=== PATIENT | female | born 1980 | race Caucasian/White ===

== ENCOUNTER 2017-04-20 10:48 | Inpatient (IN) | payer OTHER ==
[2017-04-20 11:40] VITALS: BMI 24.7
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
[2017-04-20] MEDS ORDERED: IBUPROFEN 400 MG TABLET (FP) PO PRN (12:47)
[2017-04-20] MEDS ORDERED: P-EPHED 60MG/TRIPROLIDI 2.5MG TABLET PO PRN (12:47)
[2017-04-20] MEDS ORDERED: MENTHOL/PHENOL 1 EACH UD MM PRN (12:47)
[2017-04-20] MEDS ORDERED: MAGNESIUM CITRATE 300 ML BOTTLE PO PRN (12:47)
[2017-04-20] MEDS ORDERED: MAGNESIUM HYDROX 2400MG/30ML ORAL SUSPENSION 30 ML CUP PO PRN (12:47)
[2017-04-20] MEDS ORDERED: ACETAMINOPHEN 325 MG TABLET (FP) PO PRN (12:47)
[2017-04-20] MEDS ORDERED: guaiFENesin/D-METHORPHAN HB 10 ML UNIT-DOSE CUPS PO PRN (12:47)
[2017-04-20] MEDS ORDERED: LOPERAMIDE HCL 2 MG CAPSULE PO PRN (12:47)
[2017-04-20] MEDS ORDERED: chlordiazePOXIDE HCL 25 MG CAPSULE PO ONE (13:55)
[2017-04-20] MEDS: TRIMETHOBENZAMIDE HCL 200MG/2ML INJ IM PRN ×2 (14:23→22:21)
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
[2017-04-20 16:52] LABS: URINE APPEARANCE CLEAR; URINE BILIRUBIN NEGATIVE (NEGATIVE); URINE BLOOD NEGATIVE (NEGATIVE); URINE COLOR YELLOW; URINE GLUCOSE (UA) NEGATIVE (NEGATIVE); URINE KETONE NEGATIVE (NEGATIVE); URINE LEUK ESTERASE NEGATIVE (NEGATIVE); URINE NITRITE NEGATIVE (NEGATIVE); URINE PROTEIN NEGATIVE (NEGATIVE)
[2017-04-20] MEDS: chlordiazePOXIDE HCL 25 MG CAPSULE PO SCH ×2 (17:34→22:27)
--- NOTE | 2017-04-20 18:52 | PN ---
[facility] Progress Note Note: Patient c/o of withdrawal symptoms: feeling anxious and nauseous Patient in no acute distress, AOx3, denies SOB, chest pain, dizziness, or dyspnea withdrawals symptoms repeat EKG Clonidine 0.1 mg Continue to monitor Continue detox
[2017-04-20] MEDS ORDERED: cloNIDine HCL 0.1 MG TABLET PO ONE ×2 (19:00→19:15)
[2017-04-20] MEDS: THIAMINE HCL 100 MG TABLET (FP) PO SCH (22:26)
[2017-04-20] MEDS: levETIRAcetam 250 MG TABLET (FP) PO SCH (22:26)
[2017-04-20] MEDS: ZOLPIDEM TARTRATE 10 MG TABLET (PARK CARE ONLY) PO PRN (22:27)
[2017-04-21] MEDS: chlordiazePOXIDE HCL 25 MG CAPSULE PO PRN ×2 (02:19→12:56)
[2017-04-21] MEDS: hydrOXYzine PAMOATE 50 MG CAPSULE (FP) PO PRN (02:19)
[2017-04-21] MEDS ORDERED: METHADONE HCL 40 MG DISPERSABLE TABLET ONE (04:32)
[2017-04-21] MEDS ORDERED: METHADONE HCL 10 MG TABLET ONE (04:33)
[2017-04-21] MEDS: chlordiazePOXIDE HCL 25 MG CAPSULE PO SCH ×4 (05:33→22:37)
[2017-04-21] MEDS: METHADONE 160 MG, METHADONE 30 MG PO SCH (05:33)
[2017-04-21] MEDS ORDERED: METHADONE HCL 10 MG TABLET PO SCH (06:00)
[2017-04-21] MEDS: LEVOTHYROXINE NA 25 MCG TABLET (FP) PO SCH (07:40)
[2017-04-21 10:05] LABS: CHLORIDE 101 mmol/L (98-107); POTASSIUM 4.1 mmol/L (3.5-5.1); SODIUM 138 mmol/L (136-145)
[2017-04-21 10:09] LABS: HEMATOCRIT 35.5 % (32.4-45.2); HEMOGLOBIN 11.7 GM/dL (10.7-15.3); MCH 31.4 pg (25.7-33.7); MCHC 32.8 g/dl (32.0-36.0); MEAN CELL VOLUME 95.6 fl (80-96); MEAN PLT VOLUME 8.1 fl (7.5-11.1); PLATELET COUNT 295 K/MM3 (134-434); RBC 3.71 M/mm3 (3.60-5.2); RDW 18.2 % (11.6-15.6); WHITE BLOOD COUNT 3.5 K/mm3 (4.0-10.0)
[2017-04-21 10:11] LABS: ALBUMIN 3.1 g/dl (3.4-5.0); ALK PHOS 160 U/L (45-117); ANION GAP 11 (8-16); BLOOD UREA NITROGEN 13 mg/dL (7-18); CALCIUM 7.7 mg/dL (8.5-10.1); CO2 26 mmol/L (21-32); CREATININE 0.8 mg/dL (0.55-1.02); GLUCOSE,RANDOM 81 mg/dL (74-106); SGOT/AST 67 U/L (15-37); SGPT/ALT 36 U/L (12-78); TOT PROT 6.5 g/dl (6.4-8.2)
[2017-04-21] MEDS: PRENATAL VITAMINS W/ FOLIC ACID TABLET (FP) PO SCH (10:49)
[2017-04-21] MEDS: levETIRAcetam 250 MG TABLET (FP) PO SCH ×2 (10:49→22:37)
--- NOTE | 2017-04-21 15:39 | PN ---
S CIWA - CIWA Score Nausea/Vomitin Muscle Tremors: 4-Moderate,w/Arms Extend Anxiety: 4-Mod. Anxious/Guarded Agitation: 4-Moderately Restless Paroxysmal Sweats: 3 Orientation: 0-Oriented Tacttile Disturbances: 0-None Auditory Disturbances: 0-None Visual Disturbances: 0-None Headache: 0-None Present CIWA-Ar Total Score: 18 BHS Progress Note (SOAP) Subjective: anxious tremulous sweats Objective: 04/21/17 15:37 A & ox 3 Anxious Vital Signs Temperature 97.9 F 04/21/17 14:56 Pulse Rate 83 04/21/17 14:56 Respiratory Rate 16 04/21/17 14:56 Blood Pressure 127/86 04/21/17 14:56 O2 Sat by Pulse Oximetry (%) Laboratory Last Values WBC 3.5 K/mm3 (4.0-10.0) L 04/21/17 06:20 RBC 3.71 M/mm3 (3.60-5.2) 04/21/17 06:20 Hgb 11.7 GM/dL (10.7-15.3) 04/21/17 06:20 Hct 35.5 % (32.4-45.2) 04/21/17 06:20 MCV 95.6 fl (80-96) 04/21/17 06:20 MCH 31.4 pg (25.7-33.7) 04/21/17 06:20 MCHC 32.8 g/dl (32.0-36.0) 04/21/17 06:20 RDW 18.2 % (11.6-15.6) H 04/21/17 06:20 Plt Count 295 K/MM3 (134-434) 04/21/17 06:20 MPV 8.1 fl (7.5-11.1) 04/21/17 06:20 Sodium 138 mmol/L (136-145) 04/21/17 06:20 Potassium 4.1 mmol/L (3.5-5.1) 04/21/17 06:20 Chloride 101 mmol/L (98-107) 04/21/17 06:20 Carbon Dioxide 26 mmol/L (21-32) 04/21/17 06:20 Anion Gap 11 (8-16) 04/21/17 06:20 BUN 13 mg/dL (7-18) 04/21/17 06:20 Creatinine 0.8 mg/dL (0.55-1.02) 04/21/17 06:20 Creat Clearance w eGFR > 60 (>60) 04/21/17 06:20 Random Glucose 81 mg/dL (74-106) 04/21/17 06:20 Calcium 7.7 mg/dL (8.5-10.1) L 04/21/17 06:20 Total Bilirubin 1.0 mg/dL (0.2-1.0) 04/21/17 06:20 AST 67 U/L (15-37) H 04/21/17 06:20 ALT 36 U/L (12-78) 04/21/17 06:20 Alkaline Phosphatase 160 U/L (45-117) H 04/21/17 06:20 Total Protein 6.5 g/dl (6.4-8.2) 04/21/17 06:20 Albumin 3.1 g/dl (3.4-5.0) L 04/21/17 06:20 Urine Color Yellow 04/20/17 14:45 Urine Appearance Clear 04/20/17 14:45 Urine pH 6.0 (5.0-8.0) 04/20/17 14:45 Ur Specific [place] 1.023 (1.001-1.035) 04/20/17 14:45 Urine Protein Negative (NEGATIVE) 04/20/17 14:45 Urine Glucose (UA) Negative (NEGATIVE) 04/20/17 14:45 Urine Ketones Negative (NEGATIVE) 04/20/17 14:45 Urine Blood Negative (NEGATIVE) 04/20/17 14:45 Urine Nitrite Negative (NEGATIVE) 04/20/17 14:45 Urine Bilirubin Negative (NEGATIVE) 04/20/17 14:45 Urine Urobilinogen 2.0 mg/dL (0.2-1.0) H 04/20/17 14:45 Ur Leukocyte Esterase Negative (NEGATIVE) 04/20/17 14:45 RPR Titer Nonreactive (NONREACTIVE) 04/21/17 06:20 labs noted Assessment: 04/21/17 15:38 withdrawal sx Plan: continue detox increase hydration
[2017-04-21] MEDS: GABAPENTIN 100 MG CAPSULE (FP) PO SCH ×2 (16:21→22:37)
[2017-04-21] MEDS: THIAMINE HCL 100 MG TABLET (FP) PO SCH (22:37)
[2017-04-21] MEDS: ZOLPIDEM TARTRATE 10 MG TABLET (PARK CARE ONLY) PO PRN (22:37)
--- NOTE | 2017-04-21 22:48 | EKG ---
Test Reason : Blood Pressure : / mmHG Vent. Rate : 067 BPM Atrial Rate : 067 BPM P-R Int : 186 ms QRS Dur : 086 ms QT Int : 472 ms P-R-T Axes : 029 027 025 degrees QTc Int : 498 ms NORMAL SINUS RHYTHM T WAVE ABNORMALITY, CONSIDER ANTERIOR ISCHEMIA PROLONGED QT ABNORMAL ECG WHEN COMPARED WITH ECG OF 20-APR-2017 13:51, NO SIGNIFICANT CHANGE WAS FOUND Confirmed by MD SHANTELL, REMEDIOS ([id number]) on 04/21/2017 10:47:56 PM Referred By: Confirmed By:REMEDIOS STINSON MD
[2017-04-22] MEDS: hydrOXYzine PAMOATE 50 MG CAPSULE (FP) PO PRN (00:47)
[2017-04-22] MEDS: chlordiazePOXIDE HCL 25 MG CAPSULE PO PRN ×3 (00:48→19:26)
[2017-04-22] MEDS ORDERED: METHADONE HCL 10 MG TABLET ONE (04:29)
[2017-04-22] MEDS ORDERED: METHADONE HCL 40 MG DISPERSABLE TABLET ONE (04:29)
[2017-04-22] MEDS: METHADONE 160 MG, METHADONE 30 MG PO SCH (05:41)
[2017-04-22] MEDS: GABAPENTIN 100 MG CAPSULE (FP) PO SCH ×3 (05:43→22:34)
[2017-04-22] MEDS: chlordiazePOXIDE HCL 25 MG CAPSULE PO SCH ×2 (05:44→10:44)
[2017-04-22] MEDS: MAG HYDROX/AL HYDROX/SIMETH 30 ML UNIT-DOSE CUP PO PRN ×3 (06:35→18:14)
[2017-04-22] MEDS: LEVOTHYROXINE NA 25 MCG TABLET (FP) PO SCH (07:52)
--- NOTE | 2017-04-22 09:43 | PN ---
[facility] CIWA - CIWA Score Nausea/Vomitin-No Nausea/No Vomiting Muscle Tremors: 4-Moderate,w/Arms Extend Anxiety: 4-Mod. Anxious/Guarded Agitation: 3 Paroxysmal Sweats: 1-Minimal Palms Moist Orientation: 0-Oriented Tacttile Disturbances: 1-Very Mild Itch/Numbness Auditory Disturbances: 0-None Visual Disturbances: 0-None Headache: 1-Very Mild CIWA-Ar Total Score: 14 BHS Progress Note (SOAP) Subjective: sweat tremor anxiety restlessness GI upset refuses synthroi patient wants to go to [facility] in patient rehab Objective: 04/22/17 09:42 Vital Signs Temperature 98.1 F 04/22/17 06:00 Pulse Rate 101 H 04/22/17 06:00 Respiratory Rate 18 04/22/17 06:00 Blood Pressure 149/74 04/22/17 06:00 O2 Sat by Pulse Oximetry (%) Laboratory Last Values WBC 3.5 K/mm3 (4.0-10.0) L 04/21/17 06:20 RBC 3.71 M/mm3 (3.60-5.2) 04/21/17 06:20 Hgb 11.7 GM/dL (10.7-15.3) 04/21/17 06:20 Hct 35.5 % (32.4-45.2) 04/21/17 06:20 MCV 95.6 fl (80-96) 04/21/17 06:20 MCH 31.4 pg (25.7-33.7) 04/21/17 06:20 MCHC 32.8 g/dl (32.0-36.0) 04/21/17 06:20 RDW 18.2 % (11.6-15.6) H 04/21/17 06:20 Plt Count 295 K/MM3 (134-434) 04/21/17 06:20 MPV 8.1 fl (7.5-11.1) 04/21/17 06:20 Sodium 138 mmol/L (136-145) 04/21/17 06:20 Potassium 4.1 mmol/L (3.5-5.1) 04/21/17 06:20 Chloride 101 mmol/L (98-107) 04/21/17 06:20 Carbon Dioxide 26 mmol/L (21-32) 04/21/17 06:20 Anion Gap 11 (8-16) 04/21/17 06:20 BUN 13 mg/dL (7-18) 04/21/17 06:20 Creatinine 0.8 mg/dL (0.55-1.02) 04/21/17 06:20 Creat Clearance w eGFR > 60 (>60) 04/21/17 06:20 Random Glucose 81 mg/dL (74-106) 04/21/17 06:20 Calcium 7.7 mg/dL (8.5-10.1) L 04/21/17 06:20 Total Bilirubin 1.0 mg/dL (0.2-1.0) 04/21/17 06:20 AST 67 U/L (15-37) H 04/21/17 06:20 ALT 36 U/L (12-78) 04/21/17 06:20 Alkaline Phosphatase 160 U/L (45-117) H 04/21/17 06:20 Total Protein 6.5 g/dl (6.4-8.2) 04/21/17 06:20 Albumin 3.1 g/dl (3.4-5.0) L 04/21/17 06:20 Urine Color Yellow 04/20/17 14:45 Urine Appearance Clear 04/20/17 14:45 Urine pH 6.0 (5.0-8.0) 04/20/17 14:45 Ur Specific [place] 1.023 (1.001-1.035) 04/20/17 14:45 Urine Protein Negative (NEGATIVE) 04/20/17 14:45 Urine Glucose (UA) Negative (NEGATIVE) 04/20/17 14:45 Urine Ketones Negative (NEGATIVE) 04/20/17 14:45 Urine Blood Negative (NEGATIVE) 04/20/17 14:45 Urine Nitrite Negative (NEGATIVE) 04/20/17 14:45 Urine Bilirubin Negative (NEGATIVE) 04/20/17 14:45 Urine Urobilinogen 2.0 mg/dL (0.2-1.0) H 04/20/17 14:45 Ur Leukocyte Esterase Negative (NEGATIVE) 04/20/17 14:45 RPR Titer Nonreactive (NONREACTIVE) 04/21/17 06:20 lab noted calcium supplement Assessment: 04/22/17 09:42 withdrawal sx low calcium serum anxiety with depression 04/22/17 09:44 hypothyroid Plan: continue detox zantac 150 mg bid robaxin 500 mg po qid psychiatrist referral tsh t3 and t4
[2017-04-22] MEDS: levETIRAcetam 250 MG TABLET (FP) PO SCH ×2 (10:44→22:34)
[2017-04-22] MEDS: PRENATAL VITAMINS W/ FOLIC ACID TABLET (FP) PO SCH (10:44)
[2017-04-22] MEDS: METHOCARBAMOL 500 MG TABLET PO SCH ×4 (10:46→22:34)
[2017-04-22] MEDS: RANITIDINE HCL 150 MG TABLET (FP) PO SCH ×2 (10:47→22:34)
[2017-04-22] MEDS: CALCIUM (OYSTER SHELL) 500 MG TABLET (FP) PO SCH ×2 (10:50→22:35)
[2017-04-22] MEDS: chlordiazePOXIDE 5 MG CAPSULE PO SCH ×2 (17:21→22:34)
[2017-04-22] MEDS: THIAMINE HCL 100 MG TABLET (FP) PO SCH (22:37)
[2017-04-22] MEDS: ZOLPIDEM TARTRATE 10 MG TABLET (PARK CARE ONLY) PO PRN (22:38)
[2017-04-23] MEDS ORDERED: METHADONE HCL 40 MG DISPERSABLE TABLET ONE (04:41)
[2017-04-23] MEDS ORDERED: METHADONE HCL 10 MG TABLET ONE (04:42)
[2017-04-23] MEDS: METHADONE 160 MG, METHADONE 30 MG PO SCH (06:20)
[2017-04-23] MEDS: GABAPENTIN 100 MG CAPSULE (FP) PO SCH ×3 (06:22→22:12)
[2017-04-23] MEDS: chlordiazePOXIDE 5 MG CAPSULE PO SCH ×2 (06:22→10:43)
[2017-04-23] MEDS: LEVOTHYROXINE NA 25 MCG TABLET (FP) PO SCH (06:23)
[2017-04-23] MEDS: MAG HYDROX/AL HYDROX/SIMETH 30 ML UNIT-DOSE CUP PO PRN (06:26)
--- NOTE | 2017-04-23 09:16 | PN ---
BHS Progress Note (SOAP) Subjective: alert oriented x3 anxious about availability in patient rehab patient determines to remain sober through recovery process Objective: 04/23/17 09:15 Vital Signs Temperature 97.8 F 04/23/17 06:23 Pulse Rate 71 04/23/17 06:23 Respiratory Rate 18 04/23/17 06:23 Blood Pressure 117/84 04/23/17 06:23 O2 Sat by Pulse Oximetry (%) Laboratory Last Values WBC 3.5 K/mm3 (4.0-10.0) L 04/21/17 06:20 RBC 3.71 M/mm3 (3.60-5.2) 04/21/17 06:20 Hgb 11.7 GM/dL (10.7-15.3) 04/21/17 06:20 Hct 35.5 % (32.4-45.2) 04/21/17 06:20 MCV 95.6 fl (80-96) 04/21/17 06:20 MCH 31.4 pg (25.7-33.7) 04/21/17 06:20 MCHC 32.8 g/dl (32.0-36.0) 04/21/17 06:20 RDW 18.2 % (11.6-15.6) H 04/21/17 06:20 Plt Count 295 K/MM3 (134-434) 04/21/17 06:20 MPV 8.1 fl (7.5-11.1) 04/21/17 06:20 Sodium 138 mmol/L (136-145) 04/21/17 06:20 Potassium 4.1 mmol/L (3.5-5.1) 04/21/17 06:20 Chloride 101 mmol/L (98-107) 04/21/17 06:20 Carbon Dioxide 26 mmol/L (21-32) 04/21/17 06:20 Anion Gap 11 (8-16) 04/21/17 06:20 BUN 13 mg/dL (7-18) 04/21/17 06:20 Creatinine 0.8 mg/dL (0.55-1.02) 04/21/17 06:20 Creat Clearance w eGFR > 60 (>60) 04/21/17 06:20 Random Glucose 81 mg/dL (74-106) 02/24/18 06:20 Calcium 7.7 mg/dL (8.5-10.1) L 04/21/17 06:20 Total Bilirubin 1.0 mg/dL (0.2-1.0) 04/21/17 06:20 AST 67 U/L (15-37) H 04/21/17 06:20 ALT 36 U/L (12-78) 04/21/17 06:20 Alkaline Phosphatase 160 U/L (45-117) H 04/21/17 06:20 Total Protein 6.5 g/dl (6.4-8.2) 04/21/17 06:20 Albumin 3.1 g/dl (3.4-5.0) L 04/21/17 06:20 Urine Color Yellow 04/20/17 14:45 Urine Appearance Clear 04/20/17 14:45 Urine pH 6.0 (5.0-8.0) 04/20/17 14:45 Ur Specific [place] 1.023 (1.001-1.035) 04/20/17 14:45 Urine Protein Negative (NEGATIVE) 04/20/17 14:45 Urine Glucose (UA) Negative (NEGATIVE) 04/20/17 14:45 Urine Ketones Negative (NEGATIVE) 04/20/17 14:45 Urine Blood Negative (NEGATIVE) 04/20/17 14:45 Urine Nitrite Negative (NEGATIVE) 04/20/17 14:45 Urine Bilirubin Negative (NEGATIVE) 04/20/17 14:45 Urine Urobilinogen 2.0 mg/dL (0.2-1.0) H 04/20/17 14:45 Ur Leukocyte Esterase Negative (NEGATIVE) 04/20/17 14:45 RPR Titer Nonreactive (NONREACTIVE) 04/21/17 06:20 lab noted Assessment: 04/23/17 09:15 mild withdrawal sx Plan: medically supervised detox lab reviewed and explained to the patient tsh t3 t4 pending patient verbalized understanding
--- NOTE | 2017-04-23 09:39 | PN ---
Psychiatric Progress Note Vital Signs: Vital Signs Period Temp Pulse Resp BP Sys/Modi Pulse Ox Last 24 Hr 97.8 F-98.6 F 71-87 17-20 103-117/64-84 Date of Session: 04/23/17 Chief Complaint:: " I have anxiety and i havent met my counselor." HPI: Pt. admitted to for benzodizepine dependence. ROS: Unremarkable Current Medications: Active Medications Generic Name Dose Route Start Last Admin Trade Name Freq PRN Reason Stop Dose Admin Acetaminophen 650 mg 04/20/17 12:47 Tylenol - PO Q4H PRN FEVER Al Hydroxide/Mg Hydroxide 30 ml 04/20/17 12:47 04/23/17 06:26 Mylanta Oral Suspension - PO 30 ml Q6H PRN Administration DYSPEPSIA Calcium Carbonate 500 mg 04/22/17 10:15 04/22/17 22:35 Os-Zaheer 500mg - PO 500 mg BID YOLANDE Administration Chlordiazepoxide HCl 15 mg 04/22/17 17:00 04/23/17 06:22 Librium - PO 04/23/17 11:01 15 mg [id number] YOLANDE Administration Chlordiazepoxide HCl 25 mg 04/20/17 12:47 04/22/17 19:26 Librium - PO 04/23/17 12:46 25 mg Q4H PRN Administration WITHDRAWAL(CONT SUBST) Chlordiazepoxide HCl 10 mg 04/23/17 17:00 Librium - PO 04/24/17 11:01 [id number] YOLANDE Eucalyptus/Menthol/Phenol/Sorbitol 1 each 04/20/17 12:47 Cepastat Lozenge - MM Q4H PRN SORE THROAT Gabapentin 100 mg 04/21/17 15:15 04/23/17 06:22 Neurontin - PO 100 mg TID YOLANDE Administration Guaifenesin 10 ml 04/20/17 12:47 Robitussin Dm - PO Q6H PRN COUGH Hydroxyzine Pamoate 50 mg 04/20/17 12:47 04/22/17 00:47 Vistaril - PO 50 mg Q4H PRN Administration AGITATION Levetiracetam 750 mg 04/20/17 22:00 04/22/17 22:34 Keppra - PO 750 mg BID YOLANDE Administration Levothyroxine Sodium 50 mcg 04/21/17 07:00 04/23/17 06:23 Synthroid - PO Not Given DAILY@0700 YOLANDE Loperamide HCl 4 mg 04/20/17 12:47 Imodium - PO Q6H PRN DIARRHEA Magnesium Citrate 300 ml 04/20/17 12:47 Citroma - PO Q48H PRN CONSTIPATION Magnesium Hydroxide 30 ml 04/20/17 12:47 Milk Of Magnesia - PO DAILY PRN CONSTIPATION Methadone HCl 160 mg/ 190 mg 04/21/17 06:00 04/23/17 06:20 Methadone HCl 30 mg PO 04/27/17 05:59 190 mg DAILY@0600 YOLANDE Administration Methocarbamol 500 mg 04/22/17 10:00 04/22/17 22:34 Robaxin - PO 04/24/17 09:59 500 mg QID YOLANDE Administration Multivit/Folic Acid/Iron 1 tab 04/21/17 10:00 04/22/17 10:44 Vitamins (Sjr) - PO 1 tab DAILY YOLANDE Administration Pseudoephedrine/Triprolidine 1 combo 04/20/17 12:47 Actifed - PO TID PRN NASAL CONGESTION Ranitidine HCl 150 mg 04/22/17 10:00 04/22/17 22:34 Zantac - PO 150 mg BID YOLANDE Administration Thiamine HCl 100 mg 04/20/17 22:00 04/22/17 22:37 Vitamin B1 - PO 100 mg HS YOLANDE Administration Trimethobenzamide HCl 200 mg 04/20/17 13:03 04/20/17 22:21 Tigan Injection - IM 200 mg Q8H PRN Administration NAUSEA Zolpidem Tartrate 10 mg 04/20/17 22:00 04/22/17 22:38 Ambien - PO 04/23/17 21:59 10 mg HS PRN Administration INSOMNIA Medication(s) Change(s): No. Current Side Effect: No Lab tests ordered: No Lab tests reviewed: Yes Provider note:: Ram Car Operator met with patient concerning psychiatric reconsulation. Pt. requesting information on her counselor and discharge planning. Pt. also requesting medications for anxiety. Pt. was seen by telegraphic typewriter mechanic two days ago and alternative medications for anxiety were discussed. Pt. continues to refuse alternative medication for anxiety due to its ineffectiveneess and is requesting benzopdiaxepines. Pt. made aware that benzodiazepines will not be ordered. Pt. made aware and educated on her current medication regime while in detox. Pt. receptive to feedback. Will continue to monitor. Total face to face time:: 25 Mental Status Exam - Mental Status Exam Alert and Oriented to: Time, Place, Person Cognitive Function: Good Patient Appearance: Well Groomed Mood: Anxious Affect: Mood Congruent Patient Behavior: Cooperative Speech Pattern: Appropriate Voice Loudness: Normal Thought Process: Goal Oriented Thought Disorder: Not Present Hallucinations: Denies Suicidal Ideation: Denies Homicidal Ideation: Denies Insight/Judgement: Poor Sleep: Fair Appetite: Fair Muscle strength/Tone: Normal Gait/Station: Normal Psychiatric Treatment Plan - Problem List (1) Substance-induced sleep disorder Current Visit: Yes (2) Alcohol dependence with uncomplicated withdrawal Current Visit: Yes (3) Nicotine dependence Current Visit: Yes (4) PTSD (post-traumatic stress disorder) Current Visit: No Comment: Self reports. (5) Uncomplicated sedative, hypnotic or anxiolytic withdrawal Current Visit: Yes (6) Anxiety disorder Current Visit: Yes Comment: Self reports.
[2017-04-23] MEDS: levETIRAcetam 250 MG TABLET (FP) PO SCH (10:43)
[2017-04-23] MEDS: METHOCARBAMOL 500 MG TABLET PO SCH ×4 (10:43→22:13)
[2017-04-23] MEDS: RANITIDINE HCL 150 MG TABLET (FP) PO SCH ×2 (10:44→22:13)
[2017-04-23] MEDS: PRENATAL VITAMINS W/ FOLIC ACID TABLET (FP) PO SCH (10:44)
[2017-04-23] MEDS: hydrOXYzine PAMOATE 50 MG CAPSULE (FP) PO PRN ×2 (10:46→17:19)
[2017-04-23] MEDS: CALCIUM (OYSTER SHELL) 500 MG TABLET (FP) PO SCH ×2 (11:19→22:13)
[2017-04-23] MEDS ORDERED: chlordiazePOXIDE HCL 25 MG CAPSULE PO ONE (13:04)
[2017-04-23] MEDS: chlordiazePOXIDE HCL 10 MG CAPSULE PO SCH ×2 (17:18→22:12)
[2017-04-23] MEDS: THIAMINE HCL 100 MG TABLET (FP) PO SCH (22:12)
[2017-04-23] MEDS: ZOLPIDEM TARTRATE 10 MG TABLET (PARK CARE ONLY) PO PRN (22:13)
[2017-04-24] MEDS ORDERED: METHADONE HCL 40 MG DISPERSABLE TABLET ONE (04:22)
[2017-04-24] MEDS ORDERED: METHADONE HCL 10 MG TABLET ONE (04:22)
[2017-04-24] MEDS: chlordiazePOXIDE HCL 10 MG CAPSULE PO SCH ×2 (05:48→10:35)
[2017-04-24] MEDS: METHADONE 160 MG, METHADONE 30 MG PO SCH (05:49)
[2017-04-24] MEDS: GABAPENTIN 100 MG CAPSULE (FP) PO SCH (05:49)
[2017-04-24] MEDS: MAG HYDROX/AL HYDROX/SIMETH 30 ML UNIT-DOSE CUP PO PRN (05:57)
[2017-04-24] MEDS: LEVOTHYROXINE NA 25 MCG TABLET (FP) PO SCH (07:20)
[2017-04-24] MEDS ORDERED: LEVOTHYROXINE NA 25 MCG TABLET (FP) PO SCH (09:53)
--- NOTE | 2017-04-24 10:01 | DS ---
[facility] Detox Discharge Summary Admission Date: 04/20/17 Discharge Date: 04/24/17 - History Present History: Alcohol Dependence - Physical Exam Results Vital Signs: Vital Signs Temperature 97.7 F 04/24/17 06:29 Pulse Rate 73 04/24/17 06:29 Respiratory Rate 18 04/24/17 06:29 Blood Pressure 122/78 04/24/17 06:29 O2 Sat by Pulse Oximetry (%) Pertinent Admission Physical Exam Findings: WITHDRAWAL SX Laboratory Last Values WBC 3.5 K/mm3 (4.0-10.0) L 04/21/17 06:20 RBC 3.71 M/mm3 (3.60-5.2) 04/21/17 06:20 Hgb 11.7 GM/dL (10.7-15.3) 04/21/17 06:20 Hct 35.5 % (32.4-45.2) 04/21/17 06:20 MCV 95.6 fl (80-96) 04/21/17 06:20 MCH 31.4 pg (25.7-33.7) 04/21/17 06:20 MCHC 32.8 g/dl (32.0-36.0) 04/21/17 06:20 RDW 18.2 % (11.6-15.6) H 04/21/17 06:20 Plt Count 295 K/MM3 (134-434) 04/21/17 06:20 MPV 8.1 fl (7.5-11.1) 04/21/17 06:20 Sodium 138 mmol/L (136-145) 04/21/17 06:20 Potassium 4.1 mmol/L (3.5-5.1) 04/21/17 06:20 Chloride 101 mmol/L (98-107) 04/21/17 06:20 Carbon Dioxide 26 mmol/L (21-32) 04/21/17 06:20 Anion Gap 11 (8-16) 04/21/17 06:20 BUN 13 mg/dL (7-18) 04/21/17 06:20 Creatinine 0.8 mg/dL (0.55-1.02) 04/21/17 06:20 Creat Clearance w eGFR > 60 (>60) 04/21/17 06:20 Random Glucose 81 mg/dL (74-106) 04/21/17 06:20 Calcium 7.7 mg/dL (8.5-10.1) L 04/21/17 06:20 Total Bilirubin 1.0 mg/dL (0.2-1.0) 04/21/17 06:20 AST 67 U/L (15-37) H 04/21/17 06:20 ALT 36 U/L (12-78) 04/21/17 06:20 Alkaline Phosphatase 160 U/L (45-117) H 04/21/17 06:20 Total Protein 6.5 g/dl (6.4-8.2) 04/21/17 06:20 Albumin 3.1 g/dl (3.4-5.0) L 04/21/17 06:20 TSH 4.67 uIU/ml (0.358-3.74) H 04/23/17 05:45 Free T3 1.6 pg/ml (2.0-4.4) L 04/23/17 05:45 Urine Color Yellow 04/20/17 14:45 Urine Appearance Clear 04/20/17 14:45 Urine pH 6.0 (5.0-8.0) 04/20/17 14:45 Ur Specific [place] 1.023 (1.001-1.035) 04/20/17 14:45 Urine Protein Negative (NEGATIVE) 04/20/17 14:45 Urine Glucose (UA) Negative (NEGATIVE) 04/20/17 14:45 Urine Ketones Negative (NEGATIVE) 04/20/17 14:45 Urine Blood Negative (NEGATIVE) 04/20/17 14:45 Urine Nitrite Negative (NEGATIVE) 04/20/17 14:45 Urine Bilirubin Negative (NEGATIVE) 04/20/17 14:45 Urine Urobilinogen 2.0 mg/dL (0.2-1.0) H 04/20/17 14:45 Ur Leukocyte Esterase Negative (NEGATIVE) 04/20/17 14:45 RPR Titer Nonreactive (NONREACTIVE) 04/21/17 06:20 LAB NOTED HEALTH TEACHING ON HYPOTHYROIDISM - Treatment Hospital Course: Detox Protocol Followed, Detoxed Safely, Responded well, Discharged Condition Good, Rehab Referral Accepted Patient has Accepted a Rehab Referral to: [facility] - Medication Discharge Medications: Ambulatory Orders Levothyroxine [Synthroid -] 50 mcg PO DAILY #30 tablet 04/23/17 levETIRAcetam [Keppra -] 750 mg PO BID #60 tablet 04/23/17 - Diagnosis (1) Hypothyroid Current Visit: Yes Status: Chronic Qualifiers: Hypothyroidism type: acquired Qualified Code(s): E03.9 - Hypothyroidism, unspecified (2) Alcohol dependence with uncomplicated withdrawal Current Visit: Yes Status: Acute (3) Methadone maintenance therapy patient Current Visit: Yes Status: Chronic (4) Seizure Current Visit: Yes Status: Chronic - AMA Did Patient Leave Against Medical Advice: No
[2017-04-24 10:06] VITALS: BP 108/76; PULSE 72; TEMP 97.3
[2017-04-24] MEDS: CALCIUM (OYSTER SHELL) 500 MG TABLET (FP) PO SCH (10:33)
[2017-04-24] MEDS: PRENATAL VITAMINS W/ FOLIC ACID TABLET (FP) PO SCH (10:33)
[2017-04-24] MEDS: RANITIDINE HCL 150 MG TABLET (FP) PO SCH (10:34)
--- NOTE | 2017-04-24 13:37 | EKG ---
Test Reason : Blood Pressure : / mmHG Vent. Rate : 075 BPM Atrial Rate : 075 BPM P-R Int : 166 ms QRS Dur : 078 ms QT Int : 428 ms P-R-T Axes : 043 017 034 degrees QTc Int : 477 ms NORMAL SINUS RHYTHM T WAVE ABNORMALITY, CONSIDER ANTERIOR ISCHEMIA PROLONGED QT ABNORMAL ECG NO PREVIOUS ECGS AVAILABLE Confirmed by MD Kareem, Shree ([id number]) on 04/24/2017 1:37:05 PM Referred By: Confirmed By:Shree Serna MD
[2017-04-25] MEDS ORDERED: LEVOTHYROXINE NA 25 MCG TABLET (FP) PO SCH (07:00)
== END 2017-04-24 11:10 | disposition other institution (70) | DRG 773 ==
LOC: YASAS 10:48 → Y6N 12:57
PROVIDERS: ADMIT Internal Medicine; ATTEND Internal Medicine
PROC: HZ2ZZZZ Detoxification Services for Substance Abuse Treatment (ICD-10-PCS; principal; 2017-04-20)
DX: F11.20 Opioid dependence, uncomplicated (principal); F13.230 Sedative, hypnotic or anxiolytic dependence with withdrawal, uncomplicated; F10.230 Alcohol dependence with withdrawal, uncomplicated; F43.10 Post-traumatic stress disorder, unspecified; F19.282 Other psychoactive substance dependence with psychoactive substance-induced sleep disorder; F41.9 Anxiety disorder, unspecified; G40.509 Epileptic seizures related to external causes, not intractable, without status epilepticus
CPT/HCPCS: 36415; 80053; 81003; 84436; 84443; 84481; 85027; 86593; 93005; 93010; J0735

== ENCOUNTER 2017-04-24 11:41 | Inpatient (IN) | payer OTHER ==
[2017-04-24] MEDS ORDERED: MAGNESIUM CITRATE 300 ML BOTTLE PO PRN (13:51)
[2017-04-24] MEDS ORDERED: ACETAMINOPHEN 325 MG TABLET (FP) PO PRN (13:51)
[2017-04-24] MEDS ORDERED: guaiFENesin/D-METHORPHAN HB 10 ML UNIT-DOSE CUPS PO PRN (13:51)
[2017-04-24] MEDS ORDERED: P-EPHED 60MG/TRIPROLIDI 2.5MG TABLET PO PRN (13:51)
[2017-04-24] MEDS ORDERED: MENTHOL/PHENOL 1 EACH UD MM PRN (13:51)
[2017-04-24] MEDS ORDERED: NICOTINE POLACRILEX 2 MG GUM BUC PRN (13:51)
[2017-04-24] MEDS ORDERED: LOPERAMIDE HCL 2 MG CAPSULE PO PRN (13:51)
--- NOTE | 2017-04-24 13:51 | HP ---
[facility] Rehab Assess/Revision - Admission History Admitted to Rehab from: [facility] Date of Admission to Rehab: 04/24/2017 - Vital signs Vital Signs: Vital Signs Period Temp Pulse Resp BP Sys/Modi Pulse Ox Last 24 Hr 97.8 F 80 18 113/79 - Findings Detox History & Physical reviewed: Yes Concur with findings: Yes Inpatient Rehab Admission - Initial Determination Are CD services needed?: Yes Free of communicable disease: Yes Not in need of hospitalization: Yes - Rehab Admission Criteria Comorbidities: Yes Patient is meeting Inpatient Rehab admission criteria:: Yes
[2017-04-24] MEDS: GABAPENTIN 100 MG CAPSULE (FP) PO SCH ×2 (15:01→21:23)
[2017-04-24] MEDS: hydrOXYzine PAMOATE 50 MG CAPSULE (FP) PO PRN (15:05)
[2017-04-24] MEDS ORDERED: levETIRAcetam 500 MG TABLET (FP) PO ONE (20:07)
[2017-04-24] MEDS ORDERED: levETIRAcetam 250 MG TABLET (FP) PO ONE (20:07)
[2017-04-24] MEDS: THIAMINE HCL 100 MG TABLET (FP) PO SCH (21:20)
[2017-04-24] MEDS: IBUPROFEN 400 MG TABLET (FP) PO PRN (21:25)
[2017-04-24] MEDS ORDERED: levETIRAcetam 250 MG TABLET (FP) PO SCH (22:00)
[2017-04-24] MEDS: SUVOREXANT 10 MG TABLET PO PRN (23:13)
[2017-04-24] MEDS ORDERED: CYCLOBENZAPRINE HCL 5 MG TABLET PO ONE (23:34)
[2017-04-25] MEDS ORDERED: METHADONE HCL 10 MG TABLET PO SCH (06:00)
[2017-04-25] MEDS ORDERED: METHADONE HCL 40 MG DISPERSABLE TABLET ONE (06:35)
[2017-04-25] MEDS ORDERED: METHADONE HCL 10 MG TABLET ONE (06:35)
[2017-04-25] MEDS: METHADONE 160 MG, METHADONE 30 MG PO SCH (06:42)
[2017-04-25] MEDS: GABAPENTIN 100 MG CAPSULE (FP) PO SCH (06:44)
[2017-04-25] MEDS ORDERED: LEVOTHYROXINE NA 50 MCG TABLET (FP) PO SCH (07:00)
[2017-04-25] MEDS: LEVOTHYROXINE NA 25 MCG TABLET (FP) PO SCH (07:07)
[2017-04-25] MEDS ORDERED: levETIRAcetam 500 MG TABLET (FP) PO ONE ×2 (08:57→19:38)
[2017-04-25] MEDS ORDERED: levETIRAcetam 250 MG TABLET (FP) PO ONE ×2 (08:58→19:38)
[2017-04-25] MEDS: PRENATAL VITAMINS W/ FOLIC ACID TABLET (FP) PO SCH (09:05)
[2017-04-25] MEDS: IBUPROFEN 400 MG TABLET (FP) PO PRN (09:06)
[2017-04-25] MEDS: hydrOXYzine PAMOATE 50 MG CAPSULE (FP) PO PRN ×3 (09:06→18:33)
[2017-04-25] MEDS: NICOTINE 14 MG/24 HOURS TOPICAL PATCH TD SCH (09:07)
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
[2017-04-25] MEDS: GABAPENTIN 300 MG CAPSULE (FP) PO SCH ×2 (13:11→21:31)
--- NOTE | 2017-04-25 13:15 | PN ---
S Progress Note (SOAP) Subjective: muscular pain on lower extremities, back and thigh Objective: 04/25/17 13:15 Last Vital Signs Temp Pulse Resp BP Pulse Ox 97.7 F 76 18 93/73 04/25/17 07:19 04/25/17 07:19 04/25/17 07:19 04/25/17 07:19 GENERAL APPEARANCE: Well developed, well nourished, alert and cooperative, and appears to be in no acute distress, anxious CARDIAC: Normal S1 and S2. No S3, S4 or murmurs. Rhythm is regular. There is no peripheral edema, cyanosis or pallor. Extremities are warm and well perfused. Capillary refill is less than 2 seconds. No carotid bruits. LUNGS: Clear to auscultation and percussion without rales, rhonchi, wheezing or diminished breath sounds. MUSKULOSKELETAL:ROM intact spine and extremities. No joint erythema or tenderness. Normal muscular development. Normal gait. BACK: normal gait and posture, no spinal deformity, symmetry of spinal muscles, decreased range of motion. + tenderness lower back EXTREMITIES: No significant deformity or joint abnormality. No edema. + pulses intact. No varicosities. NEUROLOGICAL: CN II-XII intact. Strength and sensation symmetric and intact throughout. Reflexes 2+ throughout. Cerebellar testing normal. SKIN: Skin normal color, texture and turgor with no lesions or eruptions. 04/25/17 13:18 Assessment: 04/25/17 13:17 Lumbago with b/t sciatica 04/25/17 13:18 Plan: Increase fluids Ambulate daily Flexeril 5 mg TID Continue to monitor
[2017-04-25] MEDS: MAG HYDROX/AL HYDROX/SIMETH 30 ML UNIT-DOSE CUP PO PRN (13:18)
[2017-04-25] MEDS: CYCLOBENZAPRINE HCL 5 MG TABLET PO SCH ×2 (15:07→21:31)
[2017-04-25] MEDS: THIAMINE HCL 100 MG TABLET (FP) PO SCH (21:31)
[2017-04-25] MEDS: SUVOREXANT 10 MG TABLET PO PRN (22:58)
[2017-04-26] MEDS ORDERED: METHADONE HCL 10 MG TABLET ONE (03:09)
[2017-04-26] MEDS ORDERED: METHADONE HCL 40 MG DISPERSABLE TABLET ONE (03:09)
[2017-04-26] MEDS: METHADONE 160 MG, METHADONE 30 MG PO SCH (06:15)
[2017-04-26] MEDS: LEVOTHYROXINE NA 25 MCG TABLET (FP) PO SCH (06:17)
[2017-04-26] MEDS: CYCLOBENZAPRINE HCL 5 MG TABLET PO SCH ×3 (06:17→21:41)
[2017-04-26] MEDS: GABAPENTIN 300 MG CAPSULE (FP) PO SCH ×3 (06:17→21:41)
[2017-04-26] MEDS ORDERED: levETIRAcetam 250 MG TABLET (FP) PO ONE ×2 (08:17→19:44)
[2017-04-26] MEDS ORDERED: levETIRAcetam 500 MG TABLET (FP) PO ONE ×2 (08:17→19:43)
[2017-04-26] MEDS: PRENATAL VITAMINS W/ FOLIC ACID TABLET (FP) PO SCH (10:28)
[2017-04-26] MEDS: NICOTINE 14 MG/24 HOURS TOPICAL PATCH TD SCH (10:28)
[2017-04-26] MEDS: hydrOXYzine PAMOATE 50 MG CAPSULE (FP) PO PRN ×3 (10:29→22:53)
[2017-04-26] MEDS: MAG HYDROX/AL HYDROX/SIMETH 30 ML UNIT-DOSE CUP PO PRN (18:26)
[2017-04-26] MEDS: THIAMINE HCL 100 MG TABLET (FP) PO SCH (21:41)
[2017-04-26] MEDS: SUVOREXANT 10 MG TABLET PO PRN (22:53)
[2017-04-27] MEDS ORDERED: METHADONE HCL 40 MG DISPERSABLE TABLET ONE (03:13)
[2017-04-27] MEDS ORDERED: METHADONE HCL 10 MG TABLET ONE (03:13)
[2017-04-27] MEDS: METHADONE 160 MG, METHADONE 30 MG PO SCH (06:22)
[2017-04-27] MEDS: LEVOTHYROXINE NA 25 MCG TABLET (FP) PO SCH (06:23)
[2017-04-27] MEDS: CYCLOBENZAPRINE HCL 5 MG TABLET PO SCH (06:23)
[2017-04-27] MEDS: GABAPENTIN 300 MG CAPSULE (FP) PO SCH (06:24)
[2017-04-27] MEDS ORDERED: levETIRAcetam 500 MG TABLET (FP) PO ONE ×2 (08:48→19:30)
[2017-04-27] MEDS ORDERED: levETIRAcetam 250 MG TABLET (FP) PO ONE ×2 (08:48→19:30)
[2017-04-27] MEDS: NICOTINE 14 MG/24 HOURS TOPICAL PATCH TD SCH (10:35)
[2017-04-27] MEDS: PRENATAL VITAMINS W/ FOLIC ACID TABLET (FP) PO SCH (10:35)
--- NOTE | 2017-04-27 11:28 | PN ---
S Progress Note (SOAP) Subjective: patient noted to have severe trembling since admission originally attributed to alcohol; and sedative withdrawal sx but patient has a h/o hypothyroidism and was not taking her nedication because it made her shaky. Medication restarted at a lower dose but trembling continues after detox most likely 2/2 to medication as per patient. Objective: 04/27/17 11:28 Vital Signs - 24 hr 04/26/17 04/27/17 04/27/17 21:47 03:30 07:04 Temperature 97.7 F 97.7 F Pulse Rate 76 79 Respiratory 18 16 18 Rate Blood Pressure 116/86 101/76 04/27/17 10:00 Temperature 96 F L Pulse Rate 98 H Respiratory 17 Rate Blood Pressure 102/58 labs reveiwed with patient Assessment: 04/27/17 11:34 hypothyroidism - tremors most likely from synthroid d/c medication, check blood work and tsh. ijeoma reviewed labwork and aware.
[2017-04-27] MEDS: hydrOXYzine PAMOATE 50 MG CAPSULE (FP) PO PRN ×2 (11:56→18:15)
[2017-04-27] MEDS: LIDOCAINE 5% TOPICAL PATCH TP SCH (13:00)
[2017-04-27] MEDS: GABAPENTIN 400 MG CAPSULE (FP) PO SCH ×2 (13:11→21:43)
[2017-04-27] MEDS: CYCLOBENZAPRINE HCL 10 MG TABLET (FP) PO SCH ×2 (13:11→21:43)
[2017-04-27] MEDS: THIAMINE HCL 100 MG TABLET (FP) PO SCH (21:43)
[2017-04-27] MEDS: AMITRIPTYLINE HCL 25 MG TABLET (FP) PO SCH (21:44)
[2017-04-27] MEDS: MAG HYDROX/AL HYDROX/SIMETH 30 ML UNIT-DOSE CUP PO PRN (21:45)
[2017-04-27] MEDS: LIDOCAINE PATCH REMOVAL MC SCH (22:24)
--- NOTE | 2017-04-27 22:26 | PN ---
S Progress Note Note: called by a nurse to r/n belsomra, according to medical record patient was on belsomra, will r/n.
[2017-04-27] MEDS: SUVOREXANT 10 MG TABLET PO SCH (22:42)
[2017-04-28] MEDS ORDERED: METHADONE HCL 10 MG TABLET ONE (05:54)
[2017-04-28] MEDS ORDERED: METHADONE HCL 40 MG DISPERSABLE TABLET ONE (05:55)
[2017-04-28] MEDS: GABAPENTIN 400 MG CAPSULE (FP) PO SCH ×3 (06:26→21:31)
[2017-04-28] MEDS: METHADONE 160 MG, METHADONE 30 MG PO SCH (06:26)
[2017-04-28] MEDS: CYCLOBENZAPRINE HCL 10 MG TABLET (FP) PO SCH ×3 (06:26→21:31)
[2017-04-28] MEDS ORDERED: levETIRAcetam 500 MG TABLET (FP) PO ONE ×2 (08:46→19:57)
[2017-04-28] MEDS ORDERED: levETIRAcetam 250 MG TABLET (FP) PO ONE ×2 (08:46→19:57)
[2017-04-28] MEDS: hydrOXYzine PAMOATE 50 MG CAPSULE (FP) PO PRN ×2 (09:21→13:19)
[2017-04-28] MEDS: LIDOCAINE 5% TOPICAL PATCH TP SCH (10:15)
[2017-04-28] MEDS: NICOTINE 14 MG/24 HOURS TOPICAL PATCH TD SCH (10:15)
[2017-04-28] MEDS: PRENATAL VITAMINS W/ FOLIC ACID TABLET (FP) PO SCH (10:15)
[2017-04-28 11:20] LABS: ANION GAP 9 (8-16); BILIRUBIN,TOTAL 0.4 mg/dL (0.2-1.0); BLOOD UREA NITROGEN 11 mg/dL (7-18); CALCIUM 8.2 mg/dL (8.5-10.1); CHLORIDE 103 mmol/L (98-107); CO2 26 mmol/L (21-32); GLUCOSE,RANDOM 124 mg/dL (74-106); SGPT/ALT 16 U/L (12-78); SODIUM 138 mmol/L (136-145); TOT PROT 6.3 g/dl (6.4-8.2)
[2017-04-28 11:30] LABS: ALK PHOS 93 U/L (45-117)
[2017-04-28 12:02] LABS: POTASSIUM 5.1 mmol/L (3.5-5.1); SGOT/AST 25 U/L (15-37)
--- NOTE | 2017-04-28 12:32 | PN ---
[facility] Progress Note Note: TSH IS 9.70,,SYNTHROID 50 MCG PO DAILY RESUME
[2017-04-28] MEDS ORDERED: LEVOTHYROXINE NA 25 MCG TABLET (FP) PO ONE (13:30)
[2017-04-28] MEDS: AMITRIPTYLINE HCL 25 MG TABLET (FP) PO SCH (21:31)
[2017-04-28] MEDS: SUVOREXANT 10 MG TABLET PO SCH (21:31)
[2017-04-28] MEDS: IBUPROFEN 400 MG TABLET (FP) PO PRN (21:32)
[2017-04-28] MEDS: MAGNESIUM HYDROX 2400MG/30ML ORAL SUSPENSION 30 ML CUP PO PRN (21:33)
[2017-04-28] MEDS: LIDOCAINE PATCH REMOVAL MC SCH (21:34)
[2017-04-28] MEDS: THIAMINE HCL 100 MG TABLET (FP) PO SCH (21:34)
[2017-04-28] MEDS ORDERED: SUVOREXANT 10 MG TABLET PO SCH (22:00)
[2017-04-29] MEDS: hydrOXYzine PAMOATE 50 MG CAPSULE (FP) PO PRN ×4 (04:09→21:27)
[2017-04-29] MEDS ORDERED: METHADONE HCL 10 MG TABLET ONE (05:42)
[2017-04-29] MEDS ORDERED: METHADONE HCL 40 MG DISPERSABLE TABLET ONE (05:42)
[2017-04-29] MEDS: LEVOTHYROXINE NA 25 MCG TABLET (FP) PO SCH (06:42)
[2017-04-29] MEDS: GABAPENTIN 400 MG CAPSULE (FP) PO SCH ×3 (06:43→21:25)
[2017-04-29] MEDS: METHADONE 160 MG, METHADONE 30 MG PO SCH (06:43)
[2017-04-29] MEDS: CYCLOBENZAPRINE HCL 10 MG TABLET (FP) PO SCH ×3 (06:43→21:25)
[2017-04-29] MEDS ORDERED: levETIRAcetam 250 MG TABLET (FP) PO ONE ×2 (08:53→19:47)
[2017-04-29] MEDS ORDERED: levETIRAcetam 500 MG TABLET (FP) PO ONE ×2 (08:53→19:47)
[2017-04-29] MEDS: NICOTINE 14 MG/24 HOURS TOPICAL PATCH TD SCH (10:08)
[2017-04-29] MEDS: PRENATAL VITAMINS W/ FOLIC ACID TABLET (FP) PO SCH (10:08)
[2017-04-29] MEDS: LIDOCAINE 5% TOPICAL PATCH TP SCH (10:09)
[2017-04-29 10:35] LABS: HEMATOCRIT 31.4 % (32.4-45.2); HEMOGLOBIN 10.6 GM/dL (10.7-15.3); MCH 32.6 pg (25.7-33.7); MCHC 33.7 g/dl (32.0-36.0); MEAN CELL VOLUME 96.8 fl (80-96); MEAN PLT VOLUME 8.1 fl (7.5-11.1); PLATELET COUNT 217 K/MM3 (134-434); RBC 3.24 M/mm3 (3.60-5.2); RDW 17.1 % (11.6-15.6); WHITE BLOOD COUNT 3.9 K/mm3 (4.0-10.0)
[2017-04-29] MEDS: THIAMINE HCL 100 MG TABLET (FP) PO SCH (21:25)
[2017-04-29] MEDS: AMITRIPTYLINE HCL 25 MG TABLET (FP) PO SCH (21:25)
[2017-04-29] MEDS: SUVOREXANT 10 MG TABLET PO SCH (21:27)
[2017-04-29] MEDS: LIDOCAINE PATCH REMOVAL MC SCH (21:27)
[2017-04-30] MEDS ORDERED: METHADONE HCL 40 MG DISPERSABLE TABLET ONE (03:32)
[2017-04-30] MEDS ORDERED: METHADONE HCL 10 MG TABLET ONE (03:32)
[2017-04-30] MEDS: METHADONE 160 MG, METHADONE 30 MG PO SCH (06:30)
[2017-04-30] MEDS: CYCLOBENZAPRINE HCL 10 MG TABLET (FP) PO SCH ×3 (06:31→21:31)
[2017-04-30] MEDS: GABAPENTIN 400 MG CAPSULE (FP) PO SCH ×4 (06:31→21:31)
[2017-04-30] MEDS: LEVOTHYROXINE NA 25 MCG TABLET (FP) PO SCH (06:33)
[2017-04-30] MEDS: IBUPROFEN 400 MG TABLET (FP) PO PRN (06:35)
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
[2017-04-30] MEDS ORDERED: levETIRAcetam 250 MG TABLET (FP) PO ONE ×2 (08:49→19:54)
[2017-04-30] MEDS ORDERED: levETIRAcetam 500 MG TABLET (FP) PO ONE ×2 (08:49→19:54)
[2017-04-30] MEDS: PRENATAL VITAMINS W/ FOLIC ACID TABLET (FP) PO SCH (10:12)
[2017-04-30] MEDS: LIDOCAINE 5% TOPICAL PATCH TP SCH (10:13)
[2017-04-30] MEDS: hydrOXYzine PAMOATE 50 MG CAPSULE (FP) PO PRN ×3 (10:13→21:31)
[2017-04-30] MEDS: NICOTINE 14 MG/24 HOURS TOPICAL PATCH TD SCH (10:19)
[2017-04-30] MEDS: AMITRIPTYLINE HCL 25 MG TABLET (FP) PO SCH (21:31)
[2017-04-30] MEDS: SUVOREXANT 10 MG TABLET PO SCH (21:32)
[2017-04-30] MEDS: LIDOCAINE PATCH REMOVAL MC SCH (21:33)
[2017-04-30] MEDS: THIAMINE HCL 100 MG TABLET (FP) PO SCH (21:33)
--- NOTE | 2017-04-30 23:25 | PN ---
[facility] Progress Note Note: Patient c/o feeling tumorous since discontinuing her synthroid. Current TSH 9.7. Patient was evaluated by the bedside. Patient AOx3, in no apparent distress ambulating in the unit. Patient moderate tremors on the upper extremities. Patient denies pain or parethesia. Discussed with Dr. Bergman who will evaluated patient tomorrow. Continue synthroid 50 mcg Continue to monitor
[2017-05-01] MEDS ORDERED: METHADONE HCL 10 MG TABLET PO SCH (06:30)
[2017-05-01] MEDS ORDERED: METHADONE HCL 10 MG TABLET ONE (06:51)
[2017-05-01] MEDS ORDERED: METHADONE HCL 40 MG DISPERSABLE TABLET ONE (06:52)
[2017-05-01] MEDS: METHADONE 160 MG, METHADONE 30 MG PO SCH (06:52)
[2017-05-01] MEDS: LEVOTHYROXINE NA 25 MCG TABLET (FP) PO SCH (06:53)
[2017-05-01] MEDS: CYCLOBENZAPRINE HCL 10 MG TABLET (FP) PO SCH ×3 (06:53→22:39)
[2017-05-01] MEDS: GABAPENTIN 400 MG CAPSULE (FP) PO SCH ×3 (06:53→22:40)
[2017-05-01] MEDS ORDERED: levETIRAcetam 500 MG TABLET (FP) PO ONE ×2 (08:54→22:34)
[2017-05-01] MEDS ORDERED: levETIRAcetam 250 MG TABLET (FP) PO ONE ×2 (08:55→22:34)
--- NOTE | 2017-05-01 10:25 | PN ---
S Progress Note (SOAP) Subjective: respond to code Objective: 05/01/17 10:20 observed patient unresponsive sitting on bedside, urinary incontinence noted ambulance called information provided to ER Assessment: 05/01/17 10:23 seizure Plan: assist patient lying on bed, 02 3L 145/73, 51, 97.8, bgm 151 patient regain consciousness, respond to verbal command, slurred at early cleared later
[2017-05-01] MEDS: PRENATAL VITAMINS W/ FOLIC ACID TABLET (FP) PO SCH (11:00)
[2017-05-01] MEDS: LIDOCAINE 5% TOPICAL PATCH TP SCH (11:00)
[2017-05-01] MEDS: NICOTINE 14 MG/24 HOURS TOPICAL PATCH TD SCH (11:00)
[2017-05-01] MEDS: AMITRIPTYLINE HCL 25 MG TABLET (FP) PO SCH (22:39)
[2017-05-01] MEDS: LIDOCAINE PATCH REMOVAL MC SCH (22:39)
[2017-05-01] MEDS: THIAMINE HCL 100 MG TABLET (FP) PO SCH (22:39)
[2017-05-01] MEDS: hydrOXYzine PAMOATE 50 MG CAPSULE (FP) PO PRN (22:40)
[2017-05-01] MEDS: SUVOREXANT 10 MG TABLET PO SCH (22:40)
[2017-05-02] MEDS ORDERED: METHADONE HCL 10 MG TABLET ONE (04:03)
[2017-05-02] MEDS ORDERED: METHADONE HCL 40 MG DISPERSABLE TABLET ONE (04:04)
[2017-05-02] MEDS: METHADONE 160 MG, METHADONE 30 MG PO SCH (06:53)
[2017-05-02] MEDS: LEVOTHYROXINE NA 25 MCG TABLET (FP) PO SCH (06:54)
[2017-05-02] MEDS: CYCLOBENZAPRINE HCL 10 MG TABLET (FP) PO SCH ×3 (06:54→21:43)
[2017-05-02] MEDS: GABAPENTIN 400 MG CAPSULE (FP) PO SCH ×3 (06:54→21:43)
[2017-05-02] MEDS ORDERED: levETIRAcetam 500 MG TABLET (FP) PO ONE ×2 (09:02→19:39)
[2017-05-02] MEDS ORDERED: levETIRAcetam 250 MG TABLET (FP) PO ONE ×2 (09:02→19:39)
[2017-05-02] MEDS: hydrOXYzine PAMOATE 50 MG CAPSULE (FP) PO PRN ×2 (10:09→18:19)
[2017-05-02] MEDS: LIDOCAINE 5% TOPICAL PATCH TP SCH (10:09)
[2017-05-02] MEDS: PRENATAL VITAMINS W/ FOLIC ACID TABLET (FP) PO SCH (10:09)
[2017-05-02] MEDS: NICOTINE 14 MG/24 HOURS TOPICAL PATCH TD SCH (10:10)
[2017-05-02] MEDS: MAG HYDROX/AL HYDROX/SIMETH 30 ML UNIT-DOSE CUP PO PRN (10:11)
[2017-05-02] MEDS ORDERED: COLLOIDAL OATMEAL 1 BAR EACH TP PRN (12:45)
[2017-05-02] MEDS: SUVOREXANT 10 MG TABLET PO SCH (21:43)
[2017-05-02] MEDS: AMITRIPTYLINE HCL 25 MG TABLET (FP) PO SCH (21:43)
[2017-05-02] MEDS: LIDOCAINE PATCH REMOVAL MC SCH (21:44)
[2017-05-02] MEDS: THIAMINE HCL 100 MG TABLET (FP) PO SCH (21:44)
[2017-05-02] MEDS: IBUPROFEN 400 MG TABLET (FP) PO PRN (21:46)
[2017-05-03] MEDS ORDERED: METHADONE HCL 10 MG TABLET ONE (03:21)
[2017-05-03] MEDS ORDERED: METHADONE HCL 40 MG DISPERSABLE TABLET ONE (03:22)
[2017-05-03] MEDS: METHADONE 160 MG, METHADONE 30 MG PO SCH (06:36)
[2017-05-03] MEDS: LEVOTHYROXINE NA 25 MCG TABLET (FP) PO SCH (06:38)
[2017-05-03] MEDS: GABAPENTIN 400 MG CAPSULE (FP) PO SCH (06:38)
[2017-05-03] MEDS: CYCLOBENZAPRINE HCL 10 MG TABLET (FP) PO SCH ×3 (06:38→21:24)
[2017-05-03] MEDS ORDERED: levETIRAcetam 500 MG TABLET (FP) PO ONE ×2 (08:46→19:34)
[2017-05-03] MEDS ORDERED: levETIRAcetam 250 MG TABLET (FP) PO ONE ×2 (08:46→19:34)
[2017-05-03] MEDS: NICOTINE 14 MG/24 HOURS TOPICAL PATCH TD SCH (10:18)
[2017-05-03] MEDS: PRENATAL VITAMINS W/ FOLIC ACID TABLET (FP) PO SCH (10:22)
[2017-05-03] MEDS: LIDOCAINE 5% TOPICAL PATCH TP SCH (10:23)
[2017-05-03] MEDS: hydrOXYzine PAMOATE 50 MG CAPSULE (FP) PO PRN (11:01)
[2017-05-03] MEDS: GABAPENTIN 300 MG CAPSULE (FP) PO SCH ×2 (13:47→21:24)
[2017-05-03] MEDS ORDERED: PT OWN MED DRAWER 7, Y5N ONE (19:36)
[2017-05-03] MEDS: THIAMINE HCL 100 MG TABLET (FP) PO SCH (21:24)
[2017-05-03] MEDS: AMITRIPTYLINE HCL 25 MG TABLET (FP) PO SCH (21:24)
[2017-05-03] MEDS: SUVOREXANT 10 MG TABLET PO SCH (22:26)
[2017-05-03] MEDS: LIDOCAINE PATCH REMOVAL MC SCH (22:27)
[2017-05-04] MEDS ORDERED: METHADONE HCL 5 MG TABLET ONE ×2 (05:55→17:18)
[2017-05-04] MEDS ORDERED: METHADONE HCL 40 MG DISPERSABLE TABLET ONE ×2 (05:56→17:19)
[2017-05-04] MEDS ORDERED: METHADONE HCL 10 MG TABLET ONE ×2 (05:56→17:19)
[2017-05-04] MEDS ORDERED: METHADONE HCL 10 MG TABLET PO SCH (06:00)
[2017-05-04] MEDS: GABAPENTIN 300 MG CAPSULE (FP) PO SCH (07:00)
[2017-05-04] MEDS: CYCLOBENZAPRINE HCL 10 MG TABLET (FP) PO SCH (07:00)
[2017-05-04] MEDS: LEVOTHYROXINE NA 25 MCG TABLET (FP) PO SCH (07:00)
[2017-05-04] MEDS: METHADONE 80 MG, METHADONE 10 MG, METHADONE 5 MG PO SCH ×2 (07:01→18:05)
[2017-05-04] MEDS: TETRAHYDROZOLINE HCL EYE DROPS OU PRN ×2 (07:07→21:25)
[2017-05-04] MEDS ORDERED: PT OWN MED DRAWER 7, Y5N ONE ×2 (07:09→14:51)
[2017-05-04] MEDS ORDERED: levETIRAcetam 500 MG TABLET (FP) PO ONE (08:39)
[2017-05-04] MEDS ORDERED: levETIRAcetam 250 MG TABLET (FP) PO ONE (08:40)
[2017-05-04 10:33] LABS: BASO % 0.7 % (0-2.0); EOS % 3.2 % (0-4.5); HEMOGLOBIN 11.5 GM/dL (10.7-15.3); LYMPH % 46.1 % (8-40); MCH 33.1 pg (25.7-33.7); MCHC 33.8 g/dl (32.0-36.0); MEAN CELL VOLUME 97.7 fl (80-96); MONO % 8.5 % (3.8-10.2); NEUT % 41.5 % (42.8-82.8); PLATELET COUNT 281 K/MM3 (134-434); RBC 3.48 M/mm3 (3.60-5.2); RDW 16.6 % (11.6-15.6); WHITE BLOOD COUNT 5.3 K/mm3 (4.0-10.0)
[2017-05-04 10:34] LABS: CHLORIDE 105 mmol/L (98-107); POTASSIUM 4.8 mmol/L (3.5-5.1); SODIUM 141 mmol/L (136-145)
[2017-05-04] MEDS: PRENATAL VITAMINS W/ FOLIC ACID TABLET (FP) PO SCH (10:37)
[2017-05-04] MEDS: NICOTINE 14 MG/24 HOURS TOPICAL PATCH TD SCH (10:37)
[2017-05-04] MEDS: LIDOCAINE 5% TOPICAL PATCH TP SCH (10:37)
[2017-05-04] MEDS: hydrOXYzine PAMOATE 50 MG CAPSULE (FP) PO PRN (10:38)
[2017-05-04 10:45] LABS: ALBUMIN 3.2 g/dl (3.4-5.0); ALK PHOS 88 U/L (45-117); ANION GAP 10 (8-16); BILIRUBIN,TOTAL 0.4 mg/dL (0.2-1.0); BLOOD UREA NITROGEN 10 mg/dL (7-18); CO2 26 mmol/L (21-32); GLUCOSE,RANDOM 113 mg/dL (74-106); SGOT/AST 20 U/L (15-37); SGPT/ALT 20 U/L (12-78); TOT PROT 6.6 g/dl (6.4-8.2)
--- NOTE | 2017-05-04 11:25 | PN ---
[facility] Progress Note (SOAP) Subjective: patient concerned about risk of seizure
--- NOTE | 2017-05-04 11:42 | PN ---
[facility] Progress Note (SOAP) Subjective: concerned about risk of seizures, c/o tremors, dry mouth, had seizure in ED [facility] Objective: 05/04/17 11:40 Vital Signs - 24 hr 05/04/17 05/04/17 05/04/17 00:30 03:30 07:17 Temperature 97.7 F Pulse Rate 95 H Respiratory 16 16 18 Rate Blood Pressure 115/76 Laboratory Tests 04/26/17 04/28/17 04/28/17 07:30 09:20 09:20 WBC Cancelled Corrected WBC (auto) Cancelled RBC Cancelled Hgb Cancelled Hct Cancelled MCV Cancelled MCH Cancelled MCHC Cancelled RDW Cancelled Plt Count Cancelled MPV Cancelled Neutrophils % Cancelled Lymphocytes % Cancelled Monocytes % Cancelled Eosinophils % Cancelled Basophils % Cancelled Nucleated RBC % Cancelled Platelet Estimate Cancelled Platelet Comment Cancelled Sodium 138 Potassium 5.1 Chloride 103 Carbon Dioxide 26 Anion Gap 9 BUN 11 Creatinine 1.0 Creat Clearance w eGFR > 60 POC Glucometer Random Glucose 124 H Calcium 8.2 L Total Bilirubin 0.4 D AST 25 ALT 16 Alkaline Phosphatase 93 Total Protein 6.3 L Albumin 3.0 L TSH 9.70 H Levetiracetam 32.6 04/29/17 05/01/17 05/04/17 09:00 10:10 07:00 WBC 3.9 L 5.3 Corrected WBC (auto) RBC 3.24 L 3.48 L Hgb 10.6 L 11.5 Hct 31.4 L 34.0 MCV 96.8 H 97.7 H MCH 32.6 33.1 MCHC 33.7 33.8 RDW 17.1 H 16.6 H Plt Count 217 D 281 D MPV 8.1 8.0 D Neutrophils % 41.5 L D Lymphocytes % 46.1 H D Monocytes % 8.5 Eosinophils % 3.2 Basophils % 0.7 Nucleated RBC % Platelet Estimate Platelet Comment Sodium Potassium Chloride Carbon Dioxide Anion Gap BUN Creatinine Creat Clearance w eGFR POC Glucometer 151 Random Glucose Calcium Total Bilirubin AST ALT Alkaline Phosphatase Total Protein Albumin TSH Levetiracetam 05/04/17 07:00 WBC Corrected WBC (auto) RBC Hgb Hct MCV MCH MCHC RDW Plt Count MPV Neutrophils % Lymphocytes % Monocytes % Eosinophils % Basophils % Nucleated RBC % Platelet Estimate Platelet Comment Sodium 141 Potassium 4.8 Chloride 105 Carbon Dioxide 26 Anion Gap 10 BUN 10 Creatinine 1.0 Creat Clearance w eGFR > 60 POC Glucometer Random Glucose 113 H Calcium 9.0 Total Bilirubin 0.4 D AST 20 ALT 20 Alkaline Phosphatase 88 Total Protein 6.6 Albumin 3.2 L TSH Levetiracetam tremors +++, a and a x3 , anxious ++ reports elavil effective but dry mouth Assessment: 05/04/17 11:40 seizure do - takes benzos at homet o control in [place] but does not have here, compelted detox keppra wnl jessica increase neurontin and keppra sdose, d/c elavil may cause seiuzres and does cuase dry mouth, start clonidine for anxiety hold for bp<90/60 keppra level pending patient advised f/u with poultry helper and neurologist ain addition to pcp when discharged.
[2017-05-04] MEDS: GABAPENTIN 400 MG CAPSULE (FP) PO SCH ×2 (13:06→21:25)
[2017-05-04] MEDS: cloNIDine HCL 0.1 MG TABLET PO SCH ×2 (13:06→21:24)
[2017-05-04] MEDS: CYCLOBENZAPRINE HCL 5 MG TABLET PO SCH ×2 (13:06→21:24)
[2017-05-04] MEDS: IBUPROFEN 400 MG TABLET (FP) PO PRN (13:07)
[2017-05-04] MEDS: MINERAL OIL/PETROLAT/WATER TOPICAL CREAM 113 GM JAR TP SCH (14:48)
[2017-05-04] MEDS: SUVOREXANT 10 MG TABLET PO SCH (21:24)
[2017-05-04] MEDS: THIAMINE HCL 100 MG TABLET (FP) PO SCH (21:24)
[2017-05-04] MEDS: LIDOCAINE PATCH REMOVAL MC SCH (21:25)
[2017-05-04] MEDS: levETIRAcetam 500 MG TABLET (FP) PO SCH (21:27)
[2017-05-05] MEDS: hydrOXYzine PAMOATE 50 MG CAPSULE (FP) PO PRN ×3 (00:02→18:04)
[2017-05-05] MEDS ORDERED: METHADONE HCL 10 MG TABLET ONE ×2 (03:24→18:00)
[2017-05-05] MEDS ORDERED: METHADONE HCL 5 MG TABLET ONE ×2 (03:24→18:00)
[2017-05-05] MEDS ORDERED: METHADONE HCL 40 MG DISPERSABLE TABLET ONE ×2 (03:24→18:00)
[2017-05-05] MEDS: METHADONE 80 MG, METHADONE 10 MG, METHADONE 5 MG PO SCH ×2 (06:29→18:01)
[2017-05-05] MEDS: GABAPENTIN 400 MG CAPSULE (FP) PO SCH ×3 (06:30→21:26)
[2017-05-05] MEDS: LEVOTHYROXINE NA 25 MCG TABLET (FP) PO SCH (06:30)
[2017-05-05] MEDS: CYCLOBENZAPRINE HCL 5 MG TABLET PO SCH ×3 (06:31→21:26)
[2017-05-05] MEDS: levETIRAcetam 500 MG TABLET (FP) PO SCH ×2 (10:15→21:26)
[2017-05-05] MEDS: cloNIDine HCL 0.1 MG TABLET PO SCH ×2 (10:15→21:26)
[2017-05-05] MEDS: MINERAL OIL/PETROLAT/WATER TOPICAL CREAM 113 GM JAR TP SCH (10:16)
[2017-05-05] MEDS: LIDOCAINE 5% TOPICAL PATCH TP SCH (10:16)
[2017-05-05] MEDS: PRENATAL VITAMINS W/ FOLIC ACID TABLET (FP) PO SCH (10:16)
[2017-05-05] MEDS: NICOTINE 14 MG/24 HOURS TOPICAL PATCH TD SCH (10:17)
[2017-05-05] MEDS: MAGNESIUM HYDROX 2400MG/30ML ORAL SUSPENSION 30 ML CUP PO PRN (10:18)
[2017-05-05] MEDS: THIAMINE HCL 100 MG TABLET (FP) PO SCH (21:26)
[2017-05-05] MEDS: LIDOCAINE PATCH REMOVAL MC SCH (21:26)
[2017-05-05] MEDS: SUVOREXANT 10 MG TABLET PO PRN (22:06)
[2017-05-06] MEDS ORDERED: METHADONE HCL 10 MG TABLET ONE ×2 (03:52→18:02)
[2017-05-06] MEDS ORDERED: METHADONE HCL 5 MG TABLET ONE ×2 (03:52→18:02)
[2017-05-06] MEDS ORDERED: METHADONE HCL 40 MG DISPERSABLE TABLET ONE ×2 (03:52→18:03)
[2017-05-06] MEDS: METHADONE 80 MG, METHADONE 10 MG, METHADONE 5 MG PO SCH ×2 (06:37→18:03)
[2017-05-06] MEDS: CYCLOBENZAPRINE HCL 5 MG TABLET PO SCH ×3 (06:38→21:45)
[2017-05-06] MEDS: LEVOTHYROXINE NA 25 MCG TABLET (FP) PO SCH (06:38)
[2017-05-06] MEDS: GABAPENTIN 400 MG CAPSULE (FP) PO SCH ×3 (06:38→21:45)
[2017-05-06] MEDS: cloNIDine HCL 0.1 MG TABLET PO SCH ×2 (10:23→21:45)
[2017-05-06] MEDS: levETIRAcetam 500 MG TABLET (FP) PO SCH ×2 (10:23→21:45)
[2017-05-06] MEDS: PRENATAL VITAMINS W/ FOLIC ACID TABLET (FP) PO SCH (10:23)
[2017-05-06] MEDS: NICOTINE 14 MG/24 HOURS TOPICAL PATCH TD SCH (10:24)
[2017-05-06] MEDS: LIDOCAINE 5% TOPICAL PATCH TP SCH (10:24)
[2017-05-06] MEDS ORDERED: PT OWN MED DRAWER 7, Y5N ONE (10:24)
[2017-05-06] MEDS: MINERAL OIL/PETROLAT/WATER TOPICAL CREAM 113 GM JAR TP SCH (10:25)
[2017-05-06] MEDS: MAGNESIUM HYDROX 2400MG/30ML ORAL SUSPENSION 30 ML CUP PO PRN (10:47)
[2017-05-06] MEDS: hydrOXYzine PAMOATE 50 MG CAPSULE (FP) PO PRN ×2 (18:04→23:36)
[2017-05-06] MEDS: TETRAHYDROZOLINE HCL EYE DROPS OU PRN (21:45)
[2017-05-06] MEDS: THIAMINE HCL 100 MG TABLET (FP) PO SCH (21:45)
[2017-05-06] MEDS: LIDOCAINE PATCH REMOVAL MC SCH (21:46)
[2017-05-06] MEDS: SUVOREXANT 10 MG TABLET PO PRN (23:34)
[2017-05-07] MEDS ORDERED: METHADONE HCL 5 MG TABLET ONE ×2 (03:11→18:03)
[2017-05-07] MEDS ORDERED: METHADONE HCL 40 MG DISPERSABLE TABLET ONE ×2 (03:12→18:05)
[2017-05-07] MEDS ORDERED: METHADONE HCL 10 MG TABLET ONE ×2 (03:12→18:04)
[2017-05-07] MEDS: METHADONE 80 MG, METHADONE 10 MG, METHADONE 5 MG PO SCH ×2 (06:55→18:36)
[2017-05-07] MEDS: LEVOTHYROXINE NA 25 MCG TABLET (FP) PO SCH (06:56)
[2017-05-07] MEDS: GABAPENTIN 400 MG CAPSULE (FP) PO SCH ×2 (06:56→14:36)
[2017-05-07] MEDS: CYCLOBENZAPRINE HCL 5 MG TABLET PO SCH ×3 (06:56→21:34)
[2017-05-07] MEDS ORDERED: PT OWN MED DRAWER 7, Y5N ONE (08:35)
[2017-05-07] MEDS: levETIRAcetam 500 MG TABLET (FP) PO SCH ×2 (10:12→21:34)
[2017-05-07] MEDS: PRENATAL VITAMINS W/ FOLIC ACID TABLET (FP) PO SCH (10:12)
[2017-05-07] MEDS: cloNIDine HCL 0.1 MG TABLET PO SCH (10:13)
[2017-05-07] MEDS: LIDOCAINE 5% TOPICAL PATCH TP SCH (10:13)
[2017-05-07] MEDS: hydrOXYzine PAMOATE 50 MG CAPSULE (FP) PO PRN ×2 (10:14→21:34)
[2017-05-07] MEDS: NICOTINE 14 MG/24 HOURS TOPICAL PATCH TD SCH (10:15)
[2017-05-07] MEDS: MINERAL OIL/PETROLAT/WATER TOPICAL CREAM 113 GM JAR TP SCH (10:15)
--- NOTE | 2017-05-07 17:39 | PN ---
Psychiatric Progress Note Vital Signs: Vital Signs Period Temp Pulse Resp BP Sys/Modi Pulse Ox Last 24 Hr 97.5 F 74-88 -18 91-98/61-70 Date of Session: 05/07/17 Chief Complaint:: Dontae very anxious,my mood is not stable. HPI: Opioid,Alcohol,Anxiolytic dependence comorbid with PTSD. ROS: Seizure disorder,PTSD,Low back pain. Current Medications: Active Medications Generic Name Dose Route Start Last Admin Trade Name Freq PRN Reason Stop Dose Admin Acetaminophen 650 mg 04/24/17 13:51 Tylenol - PO Q4H PRN FEVER Al Hydroxide/Mg Hydroxide 30 ml 04/24/17 13:51 05/02/17 10:11 Mylanta Oral Suspension - PO 30 ml Q6H PRN Administration DYSPEPSIA Colloidal Oatmeal 1 applic 05/02/17 12:45 05/02/17 14:04 Aveeno Soap - TP 1 bar DAILY PRN Administration HYGEINE Cyclobenzaprine HCl 5 mg 05/04/17 14:00 05/07/17 14:36 Cyclobenzaprine Hcl PO 5 mg TID YOLANDE Administration Duloxetine HCl 30 mg 05/07/17 17:30 Cymbalta - PO DAILY YOLANDE Eucalyptus/Menthol/Phenol/Sorbitol 1 each 04/24/17 13:51 Cepastat Lozenge - MM Q4H PRN SORE THROAT Gabapentin 900 mg 05/07/17 22:00 Neurontin - PO TID YOLANDE Guaifenesin 10 ml 04/24/17 13:51 Robitussin Dm - PO Q6H PRN COUGH Hydroxyzine Pamoate 50 mg 04/24/17 13:51 05/07/17 10:14 Vistaril - PO 50 mg Q4H PRN Administration AGITATION Ibuprofen 400 mg 04/24/17 13:51 05/04/17 13:07 Motrin - PO 400 mg Q6H PRN Administration Pain Level 4-6 Levetiracetam 1,000 mg 05/04/17 22:00 05/07/17 10:12 Keppra - PO 1,000 mg BID YOLANDE Administration Levothyroxine Sodium 50 mcg 04/29/17 07:00 05/07/17 06:56 Synthroid - PO 50 mcg DAILY@0700 [facility] Administration Lidocaine 1 patch 04/27/17 12:15 05/07/17 10:13 Lidoderm Patch - TP 1 patch DAILY YOLANDE Administration Loperamide HCl 4 mg 04/24/17 13:51 Imodium - PO Q6H PRN DIARRHEA Magnesium Citrate 300 ml 04/24/17 13:51 05/07/17 01:24 Citroma - PO 300 ml Q48H PRN Administration CONSTIPATION Magnesium Hydroxide 30 ml 04/24/17 13:51 05/06/17 10:47 Milk Of Magnesia - PO 30 ml DAILY PRN Administration CONSTIPATION Methadone HCl 80 mg/ Methadone 95 mg 05/04/17 06:00 05/07/17 06:55 HCl 10 mg/ Methadone HCl 5 mg PO 05/07/17 23:59 95 mg Q12H YOLANDE Administration Methadone HCl 190 mg 05/08/17 06:00 Dolophine - PO DAILY@0600 [facility] Miscellaneous 1 each 04/27/17 22:00 05/06/17 21:46 Lidoderm Patch Removal MC Not Given DAILY@2200 [facility] Multi-Ingredient Lotion 1 applic 05/04/17 11:15 05/07/17 10:15 Eucerin (Small Jar) - TP 1 applic DAILY YOLANDE Administration Nicotine 14 mg 04/25/17 10:00 05/07/17 10:15 Nicoderm Patch - TD Not Given DAILY YOLANDE Nicotine Polacrilex 2 mg 04/24/17 13:51 Nicorette Gum - BUC Q2H PRN NICOTINE REPLACEMENT RX Multivit/Folic Acid/Iron 1 tab 04/25/17 10:00 05/07/17 10:12 Vitamins (Sjr) - PO 1 tab DAILY YOLANDE Administration Pseudoephedrine/Triprolidine 1 combo 04/24/17 13:51 Actifed - PO TID PRN NASAL CONGESTION Tetrahydrozoline HCl 1 drop 05/03/17 09:39 05/06/17 21:45 Visine - OU 1 drop BID PRN Administration DRY EYES Thiamine HCl 100 mg 04/24/17 22:00 05/06/17 21:45 Vitamin B1 - PO 100 mg HS YOLANDE Administration Current Side Effect: No Lab tests ordered: No Lab tests reviewed: Yes Provider note:: Chart was revuewed,patient was seen today to address her ongoing anxiety.She also admits depressed mood,episodes of sadness,crying spells.Properties of Cymbalta has been discussed with the patient . Neurontin 800 mg po tid will be adjusted to 900 mg po tid,add Cymbalta 30 mg po daily. Supportive therapy provided. Total face to face time:: 30 Mental Status Exam - Mental Status Exam Alert and Oriented to: Time, Place, Person Cognitive Function: Grossly Intact Patient Appearance: Unkempt Mood: Sad, Anxious, Irritable Affect: Mood Congruent, Labile Patient Behavior: Cooperative Speech Pattern: Clear Voice Loudness: Normal Thought Process: Goal Oriented Thought Disorder: Not Present Hallucinations: Denies Suicidal Ideation: Denies Homicidal Ideation: Denies Insight/Judgement: Fair Sleep: Poorly Appetite: Good Muscle strength/Tone: Normal Gait/Station: Normal Psychiatric Treatment Plan - Problem List (1) Nicotine dependence Current Visit: Yes (2) Substance-induced sleep disorder Current Visit: Yes (3) Hypothyroid Current Visit: Yes Qualifiers: (4) Alcohol dependence Current Visit: Yes Qualifiers: Substance use status: uncomplicated Qualified Code(s): F10.20 - Alcohol dependence, uncomplicated (5) Seizure due to alcohol withdrawal Current Visit: Yes (6) Methadone maintenance therapy patient Current Visit: Yes (7) PTSD (post-traumatic stress disorder) Current Visit: Yes Comment: Self reports. (8) Anxiolytic dependence Current Visit: Yes
[2017-05-07] MEDS: DULoxetine HCL 30 MG CAPSULE.DR (FP) PO SCH (18:35)
[2017-05-07] MEDS: THIAMINE HCL 100 MG TABLET (FP) PO SCH (21:34)
[2017-05-07] MEDS: SUVOREXANT 10 MG TABLET PO PRN (21:35)
[2017-05-07] MEDS: LIDOCAINE PATCH REMOVAL MC SCH (21:35)
[2017-05-07] MEDS: GABAPENTIN 300 MG CAPSULE (FP) PO SCH (21:36)
[2017-05-07] MEDS: MAGNESIUM HYDROX 2400MG/30ML ORAL SUSPENSION 30 ML CUP PO PRN (21:37)
[2017-05-08] MEDS ORDERED: METHADONE HCL 10 MG TABLET ONE (05:56)
[2017-05-08] MEDS ORDERED: METHADONE HCL 40 MG DISPERSABLE TABLET ONE (05:56)
[2017-05-08] MEDS ORDERED: METHADONE HCL 10 MG TABLET PO SCH (06:00)
[2017-05-08] MEDS ORDERED: PT OWN MED DRAWER 7, Y5N ONE ×2 (06:59→09:03)
[2017-05-08] MEDS: GABAPENTIN 300 MG CAPSULE (FP) PO SCH ×3 (07:00→21:33)
[2017-05-08] MEDS: CYCLOBENZAPRINE HCL 5 MG TABLET PO SCH ×3 (07:00→21:33)
[2017-05-08] MEDS: TETRAHYDROZOLINE HCL EYE DROPS OU PRN (07:00)
[2017-05-08] MEDS: LEVOTHYROXINE NA 25 MCG TABLET (FP) PO SCH (07:00)
[2017-05-08] MEDS: METHADONE 160 MG, METHADONE 30 MG PO SCH (07:01)
[2017-05-08] MEDS: IBUPROFEN 400 MG TABLET (FP) PO PRN (10:12)
[2017-05-08] MEDS: PRENATAL VITAMINS W/ FOLIC ACID TABLET (FP) PO SCH (10:12)
[2017-05-08] MEDS: DULoxetine HCL 30 MG CAPSULE.DR (FP) PO SCH (10:12)
[2017-05-08] MEDS: levETIRAcetam 500 MG TABLET (FP) PO SCH ×2 (10:12→21:33)
[2017-05-08] MEDS: LIDOCAINE 5% TOPICAL PATCH TP SCH (10:14)
[2017-05-08] MEDS: NICOTINE 14 MG/24 HOURS TOPICAL PATCH TD SCH (10:14)
[2017-05-08] MEDS: MINERAL OIL/PETROLAT/WATER TOPICAL CREAM 113 GM JAR TP SCH (10:14)
[2017-05-08] MEDS: hydrOXYzine PAMOATE 50 MG CAPSULE (FP) PO PRN ×2 (10:14→21:33)
[2017-05-08] MEDS: LIDOCAINE PATCH REMOVAL MC SCH (21:34)
[2017-05-08] MEDS: THIAMINE HCL 100 MG TABLET (FP) PO SCH (21:35)
[2017-05-08] MEDS: POLYETHYLENE GLYCOL 3350 119 GM BTL PO SCH (21:35)
[2017-05-08] MEDS: SUVOREXANT 10 MG TABLET PO PRN (21:36)
[2017-05-09] MEDS ORDERED: METHADONE HCL 40 MG DISPERSABLE TABLET ONE (03:30)
[2017-05-09] MEDS ORDERED: METHADONE HCL 10 MG TABLET ONE (03:30)
[2017-05-09] MEDS: METHADONE 160 MG, METHADONE 30 MG PO SCH (06:40)
[2017-05-09] MEDS: GABAPENTIN 300 MG CAPSULE (FP) PO SCH ×3 (06:43→21:43)
[2017-05-09] MEDS: LEVOTHYROXINE NA 25 MCG TABLET (FP) PO SCH (06:44)
[2017-05-09] MEDS: CYCLOBENZAPRINE HCL 5 MG TABLET PO SCH ×3 (06:44→21:43)
[2017-05-09] MEDS ORDERED: PT OWN MED DRAWER 7, Y5N ONE (08:42)
[2017-05-09] MEDS: POLYETHYLENE GLYCOL 3350 119 GM BTL PO SCH (10:07)
[2017-05-09] MEDS: NICOTINE 14 MG/24 HOURS TOPICAL PATCH TD SCH (10:08)
[2017-05-09] MEDS: LIDOCAINE 5% TOPICAL PATCH TP SCH (10:08)
[2017-05-09] MEDS: PRENATAL VITAMINS W/ FOLIC ACID TABLET (FP) PO SCH (10:09)
[2017-05-09] MEDS: DULoxetine HCL 30 MG CAPSULE.DR (FP) PO SCH (10:09)
[2017-05-09] MEDS: levETIRAcetam 500 MG TABLET (FP) PO SCH ×2 (10:09→21:43)
[2017-05-09] MEDS: MINERAL OIL/PETROLAT/WATER TOPICAL CREAM 113 GM JAR TP SCH (10:10)
[2017-05-09] MEDS: hydrOXYzine PAMOATE 50 MG CAPSULE (FP) PO PRN ×2 (13:08→21:46)
[2017-05-09] MEDS ORDERED: NALTREXONE HCL 50 MG TABLET PO SCH (16:45)
[2017-05-09] MEDS: THIAMINE HCL 100 MG TABLET (FP) PO SCH (21:43)
[2017-05-09] MEDS: SUVOREXANT 10 MG TABLET PO PRN (21:44)
[2017-05-09] MEDS: cloNIDine HCL 0.1 MG TABLET PO PRN (21:45)
[2017-05-09] MEDS: LIDOCAINE PATCH REMOVAL MC SCH (21:45)
[2017-05-10] MEDS ORDERED: METHADONE HCL 10 MG TABLET ONE (03:24)
[2017-05-10] MEDS ORDERED: METHADONE HCL 40 MG DISPERSABLE TABLET ONE (03:25)
[2017-05-10] MEDS: METHADONE 160 MG, METHADONE 30 MG PO SCH (07:04)
[2017-05-10] MEDS: CYCLOBENZAPRINE HCL 5 MG TABLET PO SCH ×3 (07:07→21:36)
[2017-05-10] MEDS: GABAPENTIN 300 MG CAPSULE (FP) PO SCH ×3 (07:07→21:36)
[2017-05-10] MEDS: LEVOTHYROXINE NA 25 MCG TABLET (FP) PO SCH (07:07)
[2017-05-10] MEDS ORDERED: PT OWN MED DRAWER 7, Y5N ONE (08:23)
[2017-05-10] MEDS: MINERAL OIL/PETROLAT/WATER TOPICAL CREAM 113 GM JAR TP SCH (09:32)
[2017-05-10] MEDS: DULoxetine HCL 30 MG CAPSULE.DR (FP) PO SCH (09:32)
[2017-05-10] MEDS: levETIRAcetam 500 MG TABLET (FP) PO SCH ×2 (09:32→21:36)
[2017-05-10] MEDS: LIDOCAINE 5% TOPICAL PATCH TP SCH (09:32)
[2017-05-10] MEDS: PRENATAL VITAMINS W/ FOLIC ACID TABLET (FP) PO SCH (09:32)
[2017-05-10] MEDS: POLYETHYLENE GLYCOL 3350 119 GM BTL PO SCH (09:33)
[2017-05-10] MEDS: cloNIDine HCL 0.1 MG TABLET PO PRN ×2 (09:34→21:36)
[2017-05-10] MEDS ORDERED: NALTREXONE HCL 50 MG TABLET PO SCH (10:00)
[2017-05-10] MEDS: LIDOCAINE PATCH REMOVAL MC SCH (21:37)
[2017-05-10] MEDS: SUVOREXANT 10 MG TABLET PO PRN (21:38)
[2017-05-10] MEDS: THIAMINE HCL 100 MG TABLET (FP) PO SCH (21:40)
[2017-05-11] MEDS ORDERED: METHADONE HCL 10 MG TABLET ONE (03:11)
[2017-05-11] MEDS ORDERED: METHADONE HCL 40 MG DISPERSABLE TABLET ONE (03:12)
[2017-05-11] MEDS: METHADONE 160 MG, METHADONE 30 MG PO SCH (06:28)
[2017-05-11] MEDS: GABAPENTIN 300 MG CAPSULE (FP) PO SCH ×3 (06:28→21:40)
[2017-05-11] MEDS: LEVOTHYROXINE NA 25 MCG TABLET (FP) PO SCH (06:29)
[2017-05-11] MEDS: CYCLOBENZAPRINE HCL 5 MG TABLET PO SCH ×3 (06:29→21:42)
[2017-05-11] MEDS ORDERED: PT OWN MED DRAWER 7, Y5N ONE ×2 (09:04→21:44)
[2017-05-11] MEDS: levETIRAcetam 500 MG TABLET (FP) PO SCH ×2 (10:05→21:41)
[2017-05-11] MEDS: TETRAHYDROZOLINE HCL EYE DROPS OU PRN ×2 (10:05→21:45)
[2017-05-11] MEDS: LIDOCAINE 5% TOPICAL PATCH TP SCH (10:05)
[2017-05-11] MEDS: DULoxetine HCL 30 MG CAPSULE.DR (FP) PO SCH (10:05)
[2017-05-11] MEDS: MINERAL OIL/PETROLAT/WATER TOPICAL CREAM 113 GM JAR TP SCH (10:06)
[2017-05-11] MEDS: PRENATAL VITAMINS W/ FOLIC ACID TABLET (FP) PO SCH (10:06)
[2017-05-11] MEDS: POLYETHYLENE GLYCOL 3350 119 GM BTL PO SCH (10:06)
[2017-05-11] MEDS: cloNIDine HCL 0.1 MG TABLET PO PRN (13:32)
[2017-05-11] MEDS: MAGNESIUM HYDROX 2400MG/30ML ORAL SUSPENSION 30 ML CUP PO PRN (15:07)
[2017-05-11] MEDS: THIAMINE HCL 100 MG TABLET (FP) PO SCH (21:41)
[2017-05-11] MEDS: LIDOCAINE PATCH REMOVAL MC SCH (21:42)
[2017-05-11] MEDS: SUVOREXANT 10 MG TABLET PO PRN (21:45)
[2017-05-12] MEDS ORDERED: METHADONE HCL 40 MG DISPERSABLE TABLET ONE (05:53)
[2017-05-12] MEDS ORDERED: METHADONE HCL 10 MG TABLET ONE (05:53)
[2017-05-12] MEDS ORDERED: PT OWN MED DRAWER 7, Y5N ONE ×2 (06:38→09:05)
[2017-05-12] MEDS: CYCLOBENZAPRINE HCL 5 MG TABLET PO SCH ×3 (06:39→21:35)
[2017-05-12] MEDS: TETRAHYDROZOLINE HCL EYE DROPS OU PRN (06:39)
[2017-05-12] MEDS: LEVOTHYROXINE NA 25 MCG TABLET (FP) PO SCH (06:40)
[2017-05-12] MEDS: GABAPENTIN 300 MG CAPSULE (FP) PO SCH ×3 (06:40→21:35)
[2017-05-12] MEDS: METHADONE 160 MG, METHADONE 30 MG PO SCH (06:40)
[2017-05-12] MEDS: IBUPROFEN 400 MG TABLET (FP) PO PRN ×2 (06:42→20:05)
[2017-05-12] MEDS: POLYETHYLENE GLYCOL 3350 119 GM BTL PO SCH (10:24)
[2017-05-12] MEDS: levETIRAcetam 500 MG TABLET (FP) PO SCH ×2 (10:24→21:35)
[2017-05-12] MEDS: PRENATAL VITAMINS W/ FOLIC ACID TABLET (FP) PO SCH (10:24)
[2017-05-12] MEDS: DULoxetine HCL 30 MG CAPSULE.DR (FP) PO SCH (10:24)
[2017-05-12] MEDS: LIDOCAINE 5% TOPICAL PATCH TP SCH (10:24)
[2017-05-12] MEDS: cloNIDine HCL 0.1 MG TABLET PO PRN ×2 (10:34→21:35)
[2017-05-12] MEDS: MINERAL OIL/PETROLAT/WATER TOPICAL CREAM 113 GM JAR TP SCH (10:35)
[2017-05-12] MEDS: SUVOREXANT 10 MG TABLET PO PRN (21:36)
[2017-05-12] MEDS: THIAMINE HCL 100 MG TABLET (FP) PO SCH (21:37)
[2017-05-12] MEDS: LIDOCAINE PATCH REMOVAL MC SCH (21:37)
[2017-05-13] MEDS ORDERED: METHADONE HCL 10 MG TABLET ONE (05:46)
[2017-05-13] MEDS ORDERED: METHADONE HCL 40 MG DISPERSABLE TABLET ONE (05:47)
[2017-05-13] MEDS: LEVOTHYROXINE NA 25 MCG TABLET (FP) PO SCH (06:23)
[2017-05-13] MEDS: CYCLOBENZAPRINE HCL 5 MG TABLET PO SCH ×3 (06:24→21:37)
[2017-05-13] MEDS: GABAPENTIN 300 MG CAPSULE (FP) PO SCH ×3 (06:24→21:37)
[2017-05-13] MEDS: METHADONE 160 MG, METHADONE 30 MG PO SCH (06:24)
[2017-05-13] MEDS: levETIRAcetam 500 MG TABLET (FP) PO SCH ×2 (10:07→21:36)
[2017-05-13] MEDS: DULoxetine HCL 30 MG CAPSULE.DR (FP) PO SCH (10:07)
[2017-05-13] MEDS: LIDOCAINE 5% TOPICAL PATCH TP SCH (10:07)
[2017-05-13] MEDS: PRENATAL VITAMINS W/ FOLIC ACID TABLET (FP) PO SCH (10:07)
[2017-05-13] MEDS: POLYETHYLENE GLYCOL 3350 119 GM BTL PO SCH (10:08)
[2017-05-13] MEDS: MINERAL OIL/PETROLAT/WATER TOPICAL CREAM 113 GM JAR TP SCH (10:08)
[2017-05-13] MEDS: IBUPROFEN 400 MG TABLET (FP) PO PRN (10:44)
[2017-05-13] MEDS: MAG HYDROX/AL HYDROX/SIMETH 30 ML UNIT-DOSE CUP PO PRN (10:44)
[2017-05-13] MEDS: MAGNESIUM HYDROX 2400MG/30ML ORAL SUSPENSION 30 ML CUP PO PRN (11:45)
[2017-05-13] MEDS: THIAMINE HCL 100 MG TABLET (FP) PO SCH (21:36)
[2017-05-13] MEDS: hydrOXYzine PAMOATE 50 MG CAPSULE (FP) PO PRN (21:37)
[2017-05-13] MEDS: SUVOREXANT 10 MG TABLET PO PRN (21:37)
[2017-05-13] MEDS: cloNIDine HCL 0.1 MG TABLET PO PRN (21:38)
[2017-05-13] MEDS: LIDOCAINE PATCH REMOVAL MC SCH (21:38)
[2017-05-14] MEDS ORDERED: METHADONE HCL 10 MG TABLET ONE (05:50)
[2017-05-14] MEDS ORDERED: METHADONE HCL 40 MG DISPERSABLE TABLET ONE (05:51)
[2017-05-14] MEDS: METHADONE 160 MG, METHADONE 30 MG PO SCH (06:31)
[2017-05-14] MEDS: CYCLOBENZAPRINE HCL 5 MG TABLET PO SCH (06:31)
[2017-05-14] MEDS: GABAPENTIN 300 MG CAPSULE (FP) PO SCH (06:31)
[2017-05-14] MEDS: LEVOTHYROXINE NA 25 MCG TABLET (FP) PO SCH (06:31)
[2017-05-14] MEDS ORDERED: PT OWN MED DRAWER 7, Y5N ONE ×2 (06:48→08:43)
[2017-05-14] MEDS: TETRAHYDROZOLINE HCL EYE DROPS OU PRN (06:49)
[2017-05-14 07:29] VITALS: TEMP 97.4
[2017-05-14] MEDS: PRENATAL VITAMINS W/ FOLIC ACID TABLET (FP) PO SCH (09:22)
[2017-05-14] MEDS: DULoxetine HCL 30 MG CAPSULE.DR (FP) PO SCH (09:22)
[2017-05-14] MEDS: levETIRAcetam 500 MG TABLET (FP) PO SCH (09:22)
[2017-05-14] MEDS: MINERAL OIL/PETROLAT/WATER TOPICAL CREAM 113 GM JAR TP SCH (09:23)
[2017-05-14] MEDS: POLYETHYLENE GLYCOL 3350 119 GM BTL PO SCH (09:23)
[2017-05-14] MEDS: LIDOCAINE 5% TOPICAL PATCH TP SCH (09:23)
--- NOTE | 2017-05-14 10:06 | PN ---
Psychiatric Progress Note Vital Signs: Vital Signs Period Temp Pulse Resp BP Sys/Modi Pulse Ox Last 24 Hr 97.4 F 73-86 16-18 101-120/70-83 Date of Session: 05/14/17 Chief Complaint:: Discharge visit HPI: Alcohol,Anxiolytic and Opioid dependence comorbid with Substance induced mood disorder. ROS: Significant for Hypothyroidism,H/O Seizure from alcohol withdrawal. Current Medications: Active Medications Generic Name Dose Route Start Last Admin Trade Name Freq PRN Reason Stop Dose Admin Acetaminophen 650 mg 04/24/17 13:51 Tylenol - PO Q4H PRN FEVER Al Hydroxide/Mg Hydroxide 30 ml 04/24/17 13:51 05/13/17 10:44 Mylanta Oral Suspension - PO 30 ml Q6H PRN Administration DYSPEPSIA Clonidine 0.1 mg 05/09/17 15:29 05/13/17 21:38 Catapres - PO 0.1 mg BID PRN Administration AGITATION Colloidal Oatmeal 1 applic 05/02/17 12:45 05/02/17 14:04 Aveeno Soap - TP 1 bar DAILY PRN Administration HYGEINE Cyclobenzaprine HCl 5 mg 05/04/17 14:00 05/14/17 06:31 Cyclobenzaprine Hcl PO 5 mg TID YOLANDE Administration Duloxetine HCl 30 mg 05/07/17 18:00 05/14/17 09:22 Cymbalta - PO 30 mg DAILY YOLANDE Administration Eucalyptus/Menthol/Phenol/Sorbitol 1 each 04/24/17 13:51 Cepastat Lozenge - MM Q4H PRN SORE THROAT Gabapentin 900 mg 05/07/17 22:00 05/14/17 06:31 Neurontin - PO 900 mg TID YOLANDE Administration Guaifenesin 10 ml 04/24/17 13:51 Robitussin Dm - PO Q6H PRN COUGH Hydroxyzine Pamoate 50 mg 04/24/17 13:51 05/13/17 21:37 Vistaril - PO 50 mg Q4H PRN Administration AGITATION Ibuprofen 400 mg 04/24/17 13:51 05/13/17 10:44 Motrin - PO 400 mg Q6H PRN Administration Pain Level 4-6 Levetiracetam 1,000 mg 05/04/17 22:00 05/14/17 09:22 Keppra - PO 1,000 mg BID YOLANDE Administration Levothyroxine Sodium 50 mcg 04/29/17 07:00 05/14/17 06:31 Synthroid - PO 50 mcg DAILY@0700 YOLANDE Administration Lidocaine 1 patch 04/27/17 12:15 05/14/17 09:23 Lidoderm Patch - TP Not Given DAILY YOLANDE Loperamide HCl 4 mg 04/24/17 13:51 Imodium - PO Q6H PRN DIARRHEA Magnesium Citrate 300 ml 04/24/17 13:51 05/07/17 01:24 Citroma - PO 300 ml Q48H PRN Administration CONSTIPATION Magnesium Hydroxide 30 ml 04/24/17 13:51 05/13/17 11:45 Milk Of Magnesia - PO 30 ml DAILY PRN Administration CONSTIPATION Methadone HCl 160 mg/ 190 mg 05/08/17 06:00 05/14/17 06:31 Methadone HCl 30 mg PO 190 mg DAILY@0600 YOLANDE Administration Miscellaneous 1 each 04/27/17 22:00 05/13/17 21:38 Lidoderm Patch Removal MC 1 each DAILY@2200 YOLANDE Administration Multi-Ingredient Lotion 1 applic 05/04/17 11:15 05/14/17 09:23 Eucerin (Small Jar) - TP Not Given DAILY YOLANDE Polyethylene Glycol 17 gm 05/08/17 17:30 05/14/17 09:23 Miralax (For Daily Use) - PO Not Given DAILY YOLANDE Multivit/Folic Acid/Iron 1 tab 04/25/17 10:00 05/14/17 09:22 Vitamins (Sjr) - PO 1 tab DAILY YOLANDE Administration Pseudoephedrine/Triprolidine 1 combo 04/24/17 13:51 Actifed - PO TID PRN NASAL CONGESTION Tetrahydrozoline HCl 1 drop 05/03/17 09:39 05/14/17 06:49 Visine - OU 1 drop BID PRN Administration DRY EYES Thiamine HCl 100 mg 04/24/17 22:00 05/13/17 21:36 Vitamin B1 - PO 100 mg HS YOLANDE Administration Current Side Effect: No Lab tests ordered: No Lab tests reviewed: Yes Provider note:: Patient completed Total face to face time:: 30 Psychiatric Treatment Plan - Problem List (1) Nicotine dependence Current Visit: Yes (2) Substance-induced sleep disorder Current Visit: Yes (3) Hypothyroid Current Visit: Yes Qualifiers: (4) Alcohol dependence Current Visit: Yes Qualifiers: Substance use status: uncomplicated Qualified Code(s): F10.20 - Alcohol dependence, uncomplicated (5) Seizure due to alcohol withdrawal Current Visit: Yes (6) Methadone maintenance therapy patient Current Visit: Yes (7) PTSD (post-traumatic stress disorder) Current Visit: Yes Comment: Self reports. (8) Anxiolytic dependence Current Visit: Yes
[2017-05-14 10:10] VITALS: BP 107/72; PULSE 84
== END 2017-05-14 10:00 | disposition home or self-care (01) | DRG 772 ==
LOC: YASAS 11:41 → Y3E 11:42
PROVIDERS: ADMIT Psychiatry & Neurology Psychiatry; ATTEND Psychiatry & Neurology Psychiatry
PROC: HZ42ZZZ Group Counseling for Substance Abuse Treatment, Cognitive-Behavioral (ICD-10-PCS; principal; 2017-04-24)
DX: F11.20 Opioid dependence, uncomplicated (principal); F10.20 Alcohol dependence, uncomplicated; F13.20 Sedative, hypnotic or anxiolytic dependence, uncomplicated; F19.24 Other psychoactive substance dependence with psychoactive substance-induced mood disorder; F43.10 Post-traumatic stress disorder, unspecified; F19.282 Other psychoactive substance dependence with psychoactive substance-induced sleep disorder; G40.509 Epileptic seizures related to external causes, not intractable, without status epilepticus; E03.9 Hypothyroidism, unspecified
CPT/HCPCS: 36415; 80053; 82962; 84443; 85025; 85027; J0735

== ENCOUNTER 2017-05-01 10:56 | Emergency (ER) | payer OTHER ==
[2017-05-01 11:22] VITALS: BMI 24.9
[2017-05-01] MEDS ORDERED: SODIUM CHLORIDE 1,000 ML IV ONE (11:38)
[2017-05-01 12:08] LABS: URINE APPEARANCE CLEAR; URINE BILIRUBIN NEGATIVE (NEGATIVE); URINE BLOOD NEGATIVE (NEGATIVE); URINE COLOR LTYELLOW; URINE GLUCOSE (UA) NEGATIVE (NEGATIVE); URINE KETONE NEGATIVE (NEGATIVE); URINE LEUK ESTERASE TRACE (NEGATIVE); URINE NITRITE NEGATIVE (NEGATIVE); URINE PROTEIN NEGATIVE (NEGATIVE); URINE UROBILINOGEN NEGATIVE mg/dL (0.2-1.0)
[2017-05-01 12:11] LABS: EPI CELLS RARE /HPF (FEW)
--- NOTE | 2017-05-01 12:28 | PDOC ---
History of Present Illness - General History Source: Patient Exam Limitations: No Limitations - History of Present Illness Initial Comments: 05/01/17 13:34 The patient is a 36-year-old female, with a significant past medical history of gerd, hypercholesterolemia, seizure disorder, PTSD, and alcohol abuse, who presents to the ED from [facility] s/p seizure this morning. The patient recently completed alcohol detox and entered rehab. The patient states that she recalls being in bed and was found postictal this morning with urinary incontinence. The patient denies any trauma but does report muscle twitching. The patient denies any fever, chills, nausea, vomiting, diarrhea, or abdominal pain. Denies any shortness of breath or chest pain. Allergies: NKDA Surgical History: None reported Social History: Reported alcohol and opiate use PCP: N/A <Nhung Longoria - Last Filed: 05/01/17 13:50> <Ashish Smith - Last Filed: 05/01/17 14:17> - General Chief Complaint: Seizure Stated Complaint: SEIZURE Time Seen by Provider: 05/01/17 11:24 Past History <Nhung Longoria - Last Filed: 05/01/17 13:50> - Past Medical History Anemia: No Asthma: No Cancer: No Cardiac Disorders: No CVA: No COPD: No CHF: No Dementia: No Diabetes: No GI Disorders: Yes (GERD) Disorders: No HTN: No Hypercholesterolemia: Yes Kidney Stones: No Liver Disease: No Seizures: Yes (last 04/19/17) Thyroid Disease: Yes - Surgical History Abdominal Surgery: No Appendectomy: No Cardiac Surgery: No Cholecystectomy: No Lung Surgery: No Neurologic Surgery: No Orthopedic Surgery: No - Reproductive History PID: No - Suicide/Smoking/Psychosocial Hx Smoking History: Current some day smoker Have you smoked in the past 12 months: Yes Number of Cigarettes Smoked Daily: 2 Information on smoking cessation initiated: No 'Breaking Loose' booklet given: 04/20/17 Hx Alcohol Use: Yes Drug/Substance Use Hx: Yes Substance Use Type: Alcohol, Opiates Hx Substance Use Treatment: Yes (this is her first inpatient rehab program) <Ashish Smith - Last Filed: 05/01/17 14:17> - Past Medical History Allergies/Adverse Reactions: Allergies Allergy/AdvReac Type Severity Reaction Status Date / Time No Known Allergies Allergy Verified 05/01/17 11:16 Home Medications: Ambulatory Orders levETIRAcetam [Keppra -] 750 mg PO BID #60 tablet 04/23/17 Gabapentin [Neurontin] 100 mg PO TID 04/24/17 Levothyroxine [Synthroid -] 25 mcg PO DAILY 04/24/17 Review of Systems - Review of Systems Able to Perform ROS?: Yes <Nhung Longoria - Last Filed: 05/01/17 13:50> - Review of Systems Constitutional: No: Chills, Fever Respiratory: No: Cough, Shortness of Breath Cardiac (ROS): No: Chest Pain : No: Dysuria Neurological: Yes: Seizure. No: Headache All Other Systems: Reviewed and Negative <Ashish Smith - Last Filed: 05/01/17 14:17> *Physical Exam - Vital Signs Last Vital Signs Temp Pulse Resp BP Pulse Ox 98.7 F 90 16 113/84 100 05/01/17 11:00 05/01/17 11:53 05/01/17 11:53 05/01/17 11:53 05/01/17 11:53 - Physical Exam Comments: 05/01/17 13:51 GENERAL: The patient is awake, alert, and fully oriented, in no acute distress. HEAD: Normal with no signs of trauma. EYES: Pupils equal, round and reactive to light, extraocular movements intact, sclera anicteric, conjunctiva clear with no pallor. ENT: Ears normal, nares patent, oropharynx clear without exudates. Moist mucous membranes. NECK: Normal range of motion, supple without lymphadenopathy, JVD, or masses. LUNGS: Breath sounds equal, clear to auscultation bilaterally. No wheeze/ crackles. HEART: Regular rate and rhythm, normal S1 and S2 without murmur or rub. ABDOMEN: Soft/nontender/nondistended. BS wnl. No guarding or rebound. No palpable masses. No hepatosplenomegaly. EXTREMITIES: Normal range of motion, no edema. No clubbing or cyanosis. No cords, erythema, or tenderness. NEUROLOGICAL: Cranial nerves II through XII grossly intact. Normal speech, normal gait. PSYCH: Normal mood, normal affect. SKIN: Warm, Dry, normal turgor, no rashes or lesions noted. <Nhung Longoria - Last Filed: 05/01/17 13:50> - Vital Signs Last Vital Signs Temp Pulse Resp BP Pulse Ox 98.7 F 90 16 113/84 100 05/01/17 11:00 05/01/17 11:53 05/01/17 11:53 05/01/17 11:53 05/01/17 11:53 <Ashish Smith - Last Filed: 05/01/17 14:17> Heart Score/ECG Review #1 ECG reviewed & interpreted by me at: 12:26 General ECG Interpretation: Sinus Rhythm, Normal Rate (85), Normal Intervals ( qtc 456), No acute ischemic changes <Ashish Smith - Last Filed: 05/01/17 14:17> ED Treatment Course - LABORATORY CBC & Chemistry Diagram: 05/01/17 12:37 05/01/17 12:37 - ADDITIONAL ORDERS Additional order review: Laboratory Results 05/01/17 05/01/17 05/01/17 12:37 11:38 11:13 Sodium 140 Potassium 4.7 Chloride 106 Carbon Dioxide 24 Anion Gap 10 BUN 8 Creatinine 1.1 H Creat Clearance w eGFR 56.20 POC Glucometer 176.87139 Random Glucose 103 Calcium 8.4 L Total Bilirubin 0.2 D AST 21 ALT 19 Alkaline Phosphatase 87 Creatine Kinase 52 Troponin I < 0.02 Total Protein 6.1 L Albumin 2.9 L Urine Color Ltyellow Urine Appearance Clear Urine pH 5.0 Ur Specific [place] 1.009 Urine Protein Negative Urine Glucose (UA) Negative Urine Ketones Negative Urine Blood Negative Urine Nitrite Negative Urine Bilirubin Negative Urine Urobilinogen Negative Ur Leukocyte Esterase Trace Urine WBC (Auto) <1 Urine RBC (Auto) <1 Ur Epithelial Cells Rare 05/01/17 05/01/17 12:37 11:13 RBC 3.16 L MCV 96.0 MCHC 34.6 RDW 17.1 H MPV 7.2 L D Neutrophils % 58.5 Lymphocytes % 29.6 Monocytes % 8.2 Eosinophils % 3.0 Basophils % 0.7 POC Glucometer 176.90107 - Medications Given in the ED: ED Medications Discontinued Medications Generic Name Dose Route Start Last Admin Trade Name Freq PRN Reason Stop Dose Admin Sodium Chloride 1,000 mls @ 1,000 mls/hr 05/01/17 11:38 05/01/17 11:59 Normal Saline - IV 05/01/17 12:37 1,000 mls/hr ONCE ONE Administration Lorazepam 2 mg 05/01/17 12:31 05/01/17 13:10 Ativan Injection - IVPUSH 05/01/17 12:32 2 mg ONCE ONE Administration <Nhung Longoria - Last Filed: 05/01/17 13:50> - LABORATORY CBC & Chemistry Diagram: 05/01/17 12:37 05/01/17 12:37 - ADDITIONAL ORDERS Additional order review: Laboratory Results 05/01/17 05/01/17 11:38 11:13 POC Glucometer 176.05069 Urine Color Ltyellow Urine Appearance Clear Urine pH 5.0 Ur Specific [place] 1.009 Urine Protein Negative Urine Glucose (UA) Negative Urine Ketones Negative Urine Blood Negative Urine Nitrite Negative Urine Bilirubin Negative Urine Urobilinogen Negative Ur Leukocyte Esterase Trace 05/01/17 11:13 POC Glucometer 176.30592 <Ashish Smith - Last Filed: 05/01/17 14:17> Medical Decision Making - Medical Decision Making 05/01/17 12:55 A portion of this note was documented by scribe services under my direction. I have reviewed the details of the note, within reason, and agree with the documentation with the following case summary and management plan written by me. 36-year-old female with history of seizure disorder, PTSD, alcohol abuse from [facility] where she just completed alcohol detox and entered rehabilitation sent for evaluation of seizure this morning. Patient remembers being sitting on her bed, was found postictal with urinary incontinence this morning on her bed. No trauma, no preceding fevers or chills, had her typical postictal state and is now improving but complaining of ongoing muscle twitches since entering detox. Vital signs stable. Well-appearing, anxious initially Head is atraumatic Neurological exam is nonfocal Remainder exam is within normal limits, occasional possibly involuntary muscle twitching 36 old female with seizure, resolved. Question part of her primary disorder with superimposed alcohol withdrawal. No evidence for infectious process, rule out electrolyte abnormality. Glucose tested on arrival and within normal limits Labs, urinalysis, EKG IV fluid hydration, benzo Discussed with Dr. Bergman, agrees can return to [facility] if metabolic etiology ruled out 05/01/17 14:15 Labs wnl, no infectious process, lytes wnl. feels better after ativan. VSS. discussed with Dr. Bergman, pt can return to [facility]. Will arrange transportation. <Ashish Smith - Last Filed: 05/01/17 14:17> *DC/Admit/Observation/Transfer - Attestations Scribe Attestion: 05/01/17 13:51 Documentation prepared by Nhung Longoria, acting as medical appointment clerk for Ashish Smith MD. <Nhung Longoria - Last Filed: 05/01/17 13:50> <Ashish Smith - Last Filed: 05/01/17 14:17> Diagnosis at time of Disposition: Seizure Alcohol dependence with withdrawal Qualifiers: Complication of substance-induced condition: with unspecified complication Qualified Code(s): F10.239 - Alcohol dependence with withdrawal, unspecified - Discharge Dispostion Condition at time of disposition: Improved - Referrals Referrals: Twin Bergamn MD [Staff Physician] - - Patient Instructions - Post Discharge Activity
[2017-05-01 12:47] LABS: BASO % 0.7 % (0-2.0); HEMATOCRIT 30.4 % (32.4-45.2); HEMOGLOBIN 10.5 GM/dL (10.7-15.3); LYMPH % 29.6 % (8-40); MCH 33.2 pg (25.7-33.7); MCHC 34.6 g/dl (32.0-36.0); MEAN PLT VOLUME 7.2 fl (7.5-11.1); MONO % 8.2 % (3.8-10.2); NEUT % 58.5 % (42.8-82.8); PLATELET COUNT 231 K/MM3 (134-434); RBC 3.16 M/mm3 (3.60-5.2); RDW 17.1 % (11.6-15.6); WHITE BLOOD COUNT 4.6 K/mm3 (4.0-10.0)
[2017-05-01 13:09] LABS: ALBUMIN 2.9 g/dl (3.4-5.0); ANION GAP 10 (8-16); BILIRUBIN,TOTAL 0.2 mg/dL (0.2-1.0); BLOOD UREA NITROGEN 8 mg/dL (7-18); CALCIUM 8.4 mg/dL (8.5-10.1); CHLORIDE 106 mmol/L (98-107); CO2 24 mmol/L (21-32); CREATININE 1.1 mg/dL (0.55-1.02); GLUCOSE,RANDOM 103 mg/dL (74-106); POTASSIUM 4.7 mmol/L (3.5-5.1); SGOT/AST 21 U/L (15-37); SGPT/ALT 19 U/L (12-78); SODIUM 140 mmol/L (136-145); TOT PROT 6.1 g/dl (6.4-8.2)
[2017-05-01 13:11] LABS: ALK PHOS 87 U/L (45-117)
--- NOTE | 2017-05-01 15:52 | EKG ---
Test Reason : Blood Pressure : / mmHG Vent. Rate : 085 BPM Atrial Rate : 085 BPM P-R Int : 162 ms QRS Dur : 082 ms QT Int : 384 ms P-R-T Axes : 007 -03 003 degrees QTc Int : 456 ms NORMAL SINUS RHYTHM nonspecific anterior t wave changes ABNORMAL ECG Confirmed by MD Rylee, Franklin ([id number]) on 05/01/2017 3:52:00 PM Referred By: Confirmed By:Franklin Mckee MD
[2017-05-01 18:27] VITALS: TEMP 98.3
[2017-05-01 20:09] VITALS: BP 104/80; PULSE 87
== END 2017-05-01 20:11 | disposition short-term general hospital (02) ==
LOC: JER 10:56
PROC: 3E033NZ Introduction of Analgesics, Hypnotics, Sedatives into Peripheral Vein, Percutaneous Approach (ICD-10-PCS; principal; 2017-05-01)
PROC: 3E0337Z Introduction of Electrolytic and Water Balance Substance into Peripheral Vein, Percutaneous Approach (ICD-10-PCS; 2017-05-01)
DX: F10.239 Alcohol dependence with withdrawal, unspecified (principal); R56.9 Unspecified convulsions
CPT/HCPCS: 36415; 80053; 81003; 81015; 82550; 82962; 84484; 85025; 93005; 93010; 99284-25